=== PATIENT | male | born 1945 ===

== ENCOUNTER 2021-10-19 21:42 | Inpatient (IN) | payer SELFPAY ==
--- NOTE | 2021-10-19 22:25 | Cat Scan Report ---
CT HEAD WITHOUT CONTRAST INDICATION / CLINICAL INFORMATION: FALL, HEAD INJURY. TECHNIQUE: All CT scans at this location are performed using CT dose reduction for ALARA by means of automated e xposure control. COMPARISON: None available. FINDINGS: HEMORRHAGE: No evidence of intracranial hemorrhage or extra-axial fluid collection. EXTRA-AXIAL SPACES: Cortical sulci, sylvian fissures and basilar cisterns have an unremarkable appear ance. And enlargement of the subarachnoid space is observed in a bifrontal distribution. This is a ma nifestation of parenchymal volume loss. VENTRICULAR SYSTEM: The third and lateral ventricles are of normal size and configuration given the p atient's age of 76 years.. CEREBRAL PARENCHYMA: No areas of abnormal brain parenchymal attenuation are identified. There is no i ndication of recent infarction. MIDLINE SHIFT OR HERNIATION: There is no mass effect. CEREBELLUM / BRAINSTEM: Brainstem and cerebellum have an unremarkable appearance. MIDLINE STRUCTURES:No abnormalities of the pituitary gland or pineal region are identified. INTRACRANIAL VESSELS: Extensively calcified atherosclerotic plaque is present along the course the ca vernous segments of both internal carotid arteries. Similar findings are seen at the V4 segments of t he vertebral arteries. ORBITS: visualized portions of the orbits have an unremarkable appearance. SOFT TISSUES of HEAD: A scalp hematoma is present in the posterior parietal region near the midline. CALVARIUM: Evaluation of bone windows reveals no abnormalities. PARANASAL SINUSES / MASTOID AIR CELLS: Visualized portions of the paranasal sinuses are free from inf lammatory mucosal disease. Mastoid air cells are normally pneumatized. IMPRESSION: 1. Mild parenchymal volume loss in keeping with the patient's age of 76 years. 2. No acute intracranial abnormality. Signer Name: Kristofer Domingo MD Signed: 10/19/2021 10:20 PM Workstation Name: [id number]
[2021-10-20] MEDS ORDERED: SODIUM CHLORIDE 0.9% 1000 ML 1,000 ML IV ONE (02:41)
--- NOTE | 2021-10-20 02:47 | Emergency Department Report ---
ED General Adult HPI - General Chief complaint: Head Injury Stated complaint: HIT HEAD Time Seen by Provider: 10/20/21 02:41 Source: patient Mode of arrival: Wheelchair Limitations: No Limitations - History of Present Illness Initial comments: Mr Shaffer is a 76 yo Male brought in by and son with a fall and unwellness that has been going for the last 1 year but progressively getting worse. Pt just got to this country 5 days ago from [place] where he leaves. Pt is alcoholics. According to son patient had a fall shortly after having a bowel movement tonight. He struck his head on the floor. No fever or chills reported. No other modifying or associated factors reported. - Related Data Allergies Allergy/AdvReac Type Severity Reaction Status Date / Time No Known Allergies Allergy Verified 10/19/21 21:57 ED Review of Systems ROS: Stated complaint: HIT HEAD Other details as noted in HPI Comment: All other systems reviewed and negative Gastrointestinal: nausea, other (jaundice ). denies: vomiting ED Physical Exam - General Limitations: No Limitations General appearance: lethargic - Head Head exam: Present: other (occipital laceration 1 cm linear ) - Eye Eye exam: Present: other (appreciable jaundice) Pupils: Present: other (appreciable jaundice) - ENT ENT exam: Present: mucous membranes dry - Neck Neck exam: Absent: tenderness - Respiratory Respiratory exam: Present: normal lung sounds bilaterally. Absent: respiratory distress, accessory muscle use - Cardiovascular Cardiovascular Exam: Present: regular rate, normal rhythm, normal heart sounds - GI/Abdominal GI/Abdominal exam: Present: soft, normal bowel sounds. Absent: distended, tenderness - Extremities Exam Extremities exam: Absent: pedal edema - Back Exam Back exam: Absent: tenderness - Neurological Exam Neurological exam: Present: other (lethargy) - Skin Skin exam: Present: cyanosis, other (jaundice ) ED Course Vital Signs 10/19/21 21:43 Temperature 98.3 F Pulse Rate 95 H Respiratory 18 Rate Blood Pressure 89/47 [Left] O2 Sat by Pulse 98 Oximetry - Consultations Consultation #1: 10/20/21 05:33 Dr Vo consulted who wanted GI notified Consultation #2: 10/20/21 05:44 Dr Lara consulted and aware of this patient admission ED Medical Decision Making - Lab Data Result diagrams: 10/20/21 02:50 07/23/22 02:50 - Medical Decision Making here with a fall and noticed laceration to the occipital 1 cm linear -- with noted generalized jaundice--with history of alcoholism-- Noted with elevated bun/cr 61/3.0 likely as result of dehydration vs acute renal failure--will continue hydration Also noted with elevated K+ 5.3 with hyponatremia 123 with elevated AST/ALT 203/120 with alk phos 603-- with consider for alcoholic cirrhosis but will rule out biliary obstruction with CT abd/pel and abd US-- Considering all the above Dr Vo Consulted who accept pt for further evaluation and treatment-- and wanted GI consulted. Critical care attestation.: If time is entered above; I have spent that time in minutes in the direct care of this critically ill patient, excluding procedure time. ED Disposition Clinical Impression: Jaundice due to hepatitis, Acute hyponatremia, Hyperkalemia, Ascites of liver Fall Qualifiers: Encounter type: initial encounter Qualified Code(s): W19.XXXA - Unspecified fall, initial encounter Acute renal failure Qualifiers: Acute renal failure type: unspecified Qualified Code(s): N17.9 - Acute kidney failure, unspecified Disposition: 09 ADMITTED INPATIENT Is pt being admited?: Yes Does the pt Need Aspirin: No Condition: Stable Time of Disposition: 05:34
[2021-10-20 03:11] LABS: Hematocrit 33.7 % (35.5-45.6); Hemoglobin 11.2 gm/dl (11.8-15.2); Mean Corpuscular HGB Conc 33 % (32-34); Mean Corpuscular Volume 102 fl (84-94); Red Cell Distribution Width 18.6 % (13.2-15.2)
[2021-10-20 03:16] LABS: Platelet Count 82 K/mm3 (140-440)
[2021-10-20 03:31] LABS: Albumin 2.2 g/dL (3.9-5); Calcium 8.9 mg/dL (8.4-10.2)
[2021-10-20 03:37] LABS: INR 1.43 (0.87-1.13)
[2021-10-20 04:44] LABS: Basophils % (Manual) 0 % (0.0-1.8); Eosinophils % (Manual) 0 % (0.0-4.3); RBC Morphology Normal; Total Cells Counted 100
[2021-10-20] MEDS ORDERED: LORazepam 2 MG/ML VIAL IV ONE (05:09)
[2021-10-20] MEDS ORDERED: MORPHINE 2 MG/1 ML INJ IV PRN (05:39)
[2021-10-20] MEDS ORDERED: ONDANSETRON 4 MG/2 ML INJ IV PRN (05:39)
[2021-10-20] MEDS ORDERED: IBUPROFEN 600 MG TAB PO PRN (05:39)
[2021-10-20] MEDS ORDERED: MORPHINE 4 MG/1 ML INJ IV PRN (05:39)
[2021-10-20] MEDS ORDERED: MAGNESIUM HYDROXIDE (MOM) ORAL LIQD UDC PO PRN (05:39)
--- NOTE | 2021-10-20 05:42 | Cat Scan Report ---
CT ABDOMEN AND PELVIS WITHOUT CONTRAST INDICATION / CLINICAL INFORMATION: elevated LFTs. TECHNIQUE: Axial CT images were obtained through the abdomen and pelvis without IV contrast. All CT scans at this location are performed using CT dose reduction for ALARA by means of automated exposure control. COMPARISON: None available. FINDINGS: LOWER CHEST: Bilateral gynecomastia. No acute findings within the lower chest. LIVER: Liver demonstrates cirrhotic features without obvious focal mass. GALLBLADDER / BILE DUCTS: Mild gallbladder wall thickening not excluded. No stones. This is a nonspec ific finding in the setting of ascites and cirrhotic disease. Biliary ducts not well visualized. SPLEEN: No significant abnormality. PANCREAS: Lipomatous atrophy of the pancreas is present. ADRENALS: No significant abnormality. KIDNEYS/URETERS: No stones or hydronephrosis. No solid renal lesion. STOMACH / DUODENUM / SMALL BOWEL: The stomach, duodenum, and small bowel demonstrate no significant a bnormality. No specific abnormality of the mesentery demonstrated. COLON: No significant abnormality. APPENDIX: No significant abnormality. PERITONEUM: Moderate intra-abdominal ascites. Numerous varices are noted within the gastrosplenic lig ament. Perigastric varices additionally suggested. LYMPH NODES: No significant adenopathy. AORTA / ARTERIES: Moderate atherosclerotic calcification without acute abnormality. IVC / VEINS: No significant abnormality. URINARY BLADDER: No significant abnormality. REPRODUCTIVE ORGANS: No significant abnormality. SKELETAL SYSTEM: Degenerative changes of the lumbar spine. Moderate. ADDITIONAL ABDOMINAL/PELVIC FINDINGS: None. IMPRESSION: 1. Cirrhotic features of the liver suggested with additional upper abdominal varices and moderate int ra-abdominal ascites. Signer Name: Nikolas Saxena II, MD Signed: 10/20/2021 5:38 AM Workstation Name: [id number]
--- NOTE | 2021-10-20 05:50 | History and Physical Report ---
History of Present Illness Date of examination: 10/20/21 Date of admission: 10/20/2021 Chief complaint: Fall History of present illness: 76-year-old male presenting to the emergency room today accompanied by family members for evaluation after having a fall at home. Patient was said to be going to the restroom when he suddenly had a fall. According to son who was by the bedside patient has not been feeling quite well over the past few days. Patient came to the [facility] from [place] about 5 days ago. 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 He had a fall after having a bowel movement today. He was said to have hit his head but had no loss of consciousness. Most of the history was gotten from the family members as patient is not able to give any coherent history at this time. Work-up in the emergency room today, labs significant for leukocytosis of 12.5, hemoglobin 11.2 and hematocrit 33.7. Sodium of 129, potassium of 5.3, BUN of 61 and creatinine of 3.0. Total bilirubin 15.4, AST 203 and ALT 120, alkaline phos 603, ammonia levels were 184. CT of the head shows no acute abnormality however there is mild parenchymal volume loss in keeping with the patient's age of 76. Abdominal ultrasound reveals cirrhotic appearance of the liver with moderate intra-abdominal ascites. Possible filling defect within the enlarged common bile duct. Choledocholithiasis as well as soft tissue filling defect and not excluded. MRCP is recommended for further evaluation. Nonspecific enlarged appearance of the pancreas. CT of the abdomen and pelvis shows cirrhotic features of the liver suggested with additional upper abdominal varices and moderate intra-abdominal ascites. Clinic Office Assistant on-call has been consulted by the ER physician. Past History Past Medical History: other (Alcohol Abuse) Past Surgical History: Other (Paracentesis) Social history: alcohol abuse Family history: no significant family history Medications and Allergies Allergies Allergy/AdvReac Type Severity Reaction Status Date / Time No Known Allergies Allergy Verified 10/19/21 21:57 Active Meds: Active Medications Sodium Chloride (Nacl 0.9% 1000 Ml) 1,000 mls @ 75 mls/hr IV DIRECT YUKO Ceftriaxone Sodium (Rocephin/Ns 1 Gm/50 Ml) 1 gm in 50 mls @ 100 mls/hr IV Q24H YUKO; Protocol Ibuprofen (Ibuprofen 600 Mg Tab) 600 mg PO Q6H PRN PRN Reason: Pain, Mild (1-3) Magnesium Hydroxide (Magnesium Hydroxide (Mom) Oral Liqd Udc) 30 ml PO Q4H PRN PRN Reason: Constipation Morphine Sulfate (Morphine 2 Mg/1 Ml Inj) 2 mg IV Q4H PRN PRN Reason: Pain, Moderate (4-6) Morphine Sulfate (Morphine 4 Mg/1 Ml Inj) 4 mg IV Q4H PRN PRN Reason: Pain , Severe (7-10) Ondansetron HCl (Ondansetron 4 Mg/2 Ml Inj) 4 mg IV Q8H PRN PRN Reason: Nausea And Vomiting Sodium Chloride (Sodium Chloride 0.9% 10 Ml Flush Syringe) 10 ml IV BID YUKO Sodium Chloride (Sodium Chloride 0.9% 10 Ml Flush Syringe) 10 ml IV PRN PRN PRN Reason: LINE FLUSH Review of Systems ROS unobtainable: due to mental status Exam - Constitutional Vitals: Temp Pulse Resp BP Pulse Ox 98.3 F 95 H 18 89/47 98 10/19/21 21:43 10/19/21 21:43 10/19/21 21:43 10/19/21 21:43 10/19/21 21:43 General appearance: Present: no acute distress, well-nourished - EENT Eyes: Present: PERRL, EOM intact, scleral icterus ENT: hearing intact, clear oral mucosa, dentition normal - Neck Neck: Present: supple, normal ROM - Respiratory Respiratory effort: normal Respiratory: bilateral: CTA - Cardiovascular Rhythm: regular Heart Sounds: Present: S1 & S2. Absent: gallop, systolic murmur, diastolic murmur, rub, click - Extremities Extremities: no ischemia, pulses intact, pulses symmetrical, No edema, normal temperature, normal color, Full ROM Peripheral Pulses: within normal limits - Abdominal General gastrointestinal: Present: soft, non-tender, distended (Mildly distended), normal bowel sounds. Absent: mass - Integumentary Integumentary: Present: clear, warm, dry, jaundice, normal turgor. Absent: rash - Musculoskeletal Musculoskeletal: strength equal bilaterally - Psychiatric Psychiatric: cooperative - Neurologic Neurologic: CNII-XII intact, no focal deficits, moves all extremities Results - Labs CBC & Chem 7: 10/20/21 02:50 10/20/21 02:50 Labs: Abnormal lab results 10/20/21 10/20/21 10/20/21 Range/Units 02:50 02:50 02:50 WBC 12.5 H (4.5-11.0) K/mm3 RBC 3.30 L (3.65-5.03) M/mm3 Hgb 11.2 L (11.8-15.2) gm/dl Hct 33.7 L (35.5-45.6) % MCV 102 H (84-94) fl MCH 34 H (28-32) pg RDW 18.6 H (13.2-15.2) % Plt Count 82 L (140-440) K/mm3 Seg Neuts % (Manual) 81.0 H (40.0-70.0) % Lymphocytes % (Manual) 8.0 L (13.4-35.0) % Monocytes % (Manual) 11.0 H (0.0-7.3) % Seg Neutrophils # Man 10.1 H (1.8-7.7) K/mm3 Lymphocytes # (Manual) 1.0 L (1.2-5.4) K/mm3 Monocytes # (Manual) 1.4 H (0.0-0.8) K/mm3 PT 19.2 H (12.2-14.9) Sec. INR 1.43 H (0.87-1.13) APTT 43.0 H (24.2-36.6) Sec. Sodium 129 L (137-145) mmol/L Potassium 5.3 H (3.6-5.0) mmol/L Chloride 97.9 L (98-107) mmol/L Carbon Dioxide 12 L (22-30) mmol/L BUN 61 H (9-20) mg/dL Creatinine 3.0 H (0.8-1.3) mg/dL Glucose 114 H (75-100) mg/dL Total Bilirubin 15.40 H (0.1-1.2) mg/dL AST 203 H (5-40) units/L ALT 120 H (7-56) units/L Alkaline Phosphatase 603 H (35-129) units/L Albumin 2.2 L (3.9-5) g/dL Assessment and Plan Assessment: 1. Liver cirrhosis-with upper abdominal varices 2. Alcoholic hepatitis 3. Alcohol abuse 4. MÓNICA 5. Hyponatremia 6. Ascites 7. Hyperammonemia 8. Jaundice 9. Leukocytosis 10. Hyperkalemia 11. Hypoalbuminemia Plan: 1. Patient admitted and placed on telemetry. 2. We will place on gentle IV fluid- Normal Saline 3. Patient will also be commenced on empiric IV antibiotics. 4. Placed on CIWA protocol. 5. Consult placed to gastroenterology for evaluation and further re commendation. We will schedule for MRCP. 6. Patient started on lactulose. We will monitor ammonia level. Await further recommendations from gastroenterology. 7. Consult placed to nephrology for evaluation. Baseline BUN and creatinine unknown. DVT Prophylaxis: SCD Code Status: Full Code.
--- NOTE | 2021-10-20 05:58 | Ultrasound Report ---
ULTRASOUND ABDOMEN, LIMITED INDICATION / CLINICAL INFORMATION: elevated LFTs with alcoholism. COMPARISON: CT of the abdomen and pelvis same date. TECHNIQUE: Using transcutaneous protocol multiple grayscale and color Doppler images were captured an d stored of the pancreas, liver, aorta, inferior vena cava, gallbladder, common bile duct, and right kidney. FINDINGS: PANCREAS: Pancreas appears enlarged without ductal dilatation or distinct focal mass. AORTA: Longitudinal images of the aorta demonstrate no significant abnormality. IVC: Inferior vena cava not well visualized on ultrasound. LIVER: Liver demonstrates cirrhotic features with a nodular margin and heterogeneous hyperechoic appe arance. As measured, the right hepatic lobe is 12.1 cm. Normal hepatopedal blood flow in the main por nilo vein. GALLBLADDER: Gallbladder wall thickening present without cholelithiasis. Pericholecystic ascites is n oted. BILE DUCTS: Common bile duct is enlarged. Intraductal filling defect is suggested possibly reflective of stone. Common bile duct measures 5.1 mm. RIGHT KIDNEY: Not well visualized. FREE FLUID: Moderate intra-abdominal ascites. ADDITIONAL FINDINGS: None. IMPRESSION: 1. Cirrhotic appearance of the liver with moderate intra-abdominal ascites. 2. Possible filling defect within the enlarged common bile duct. Choledocholithiasis as well as soft tissue filling defect are not excluded. MRCP is recommended for further evaluation. 3. Nonspecific enlarged appearance of the pancreas. Signer Name: Nikolas Saxena II, MD Signed: 10/20/2021 5:54 AM Workstation Name: [id number]
[2021-10-20] MEDS ORDERED: LACTULOSE 20 GM/30 ML ORAL LIQD PO SCH (08:00)
[2021-10-20] MEDS ORDERED: LORazepam 2 MG/ML VIAL IV PRN ×3 (08:00)
--- NOTE | 2021-10-20 12:20 | Progress Note ---
Assessment and Plan - Patient Problems (1) Acute hyponatremia Current Visit: No Status: Acute Plan to address problem: IV normal saline for now (2) MÓNICA (acute kidney injury) Current Visit: Yes Status: Acute Plan to address problem: MÓNICA superimposed on CKD Defer to nephrology (3) Fall Current Visit: No Status: Acute Qualifiers: Encounter type: initial encounter Qualified Code(s): W19.XXXA - Unspecified fall, initial encounter Plan to address problem: Secondary to debility and electrolyte imbalance and hepatic failure (4) Hyperkalemia Current Visit: No Status: Acute Plan to address problem: IV calcium gluconate (5) Hepatic failure Current Visit: Yes Status: Chronic Qualifiers: Liver failure chronicity: subacute Hepatic coma status: without hepatic coma Qualified Code(s): K72.00 - Acute and subacute hepatic failure without coma Plan to address problem: Lactulose 20 mg po bid Hepatitis profile (6) Hepatic encephalopathy Current Visit: Yes Status: Acute (7) DVT prophylaxis Current Visit: Yes Status: Acute Plan to address problem: Heparin and GI prophylaxis (8) Advance care planning Current Visit: Yes Status: Acute Plan to address problem: Disease education conducted, care plan discussed, all diagnosis discussed prognosis discussed and patient acknowledged understanding with care plan family at bedside +30 minutes Subjective Date of service: 10/20/21 Principal diagnosis: MÓNICA, Hyponatremia, Interval history: 76-year-old male presenting to the emergency room today accompanied by family members for evaluation after having a fall at home. Patient was said to be going to the restroom when he suddenly had a fall. According to son who was by the bedside patient has not been feeling quite well over the past few days. Patient came to the [facility] from [place] about 5 days ago. 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 He had a fall after having a bowel movement today. He was said to have hit his head but had no loss of consciousness. Most of the history was gotten from the family members as patient is not able to give any coherent history at this time. Work-up in the emergency room today, labs significant for leukocytosis of 12.5, hemoglobin 11.2 and hematocrit 33.7. Sodium of 129, potassium of 5.3, BUN of 61 and creatinine of 3.0. Total bilirubin 15.4, AST 203 and ALT 120, alkaline phos 603, ammonia levels were 184. CT of the head shows no acute abnormality however there is mild parenchymal volume loss in keeping with the patient's age of 76. Abdominal ultrasound reveals cirrhotic appearance of the liver with moderate intra-abdominal ascites. Possible filling defect within the enlarged common bile duct. Choledocholithiasis as well as soft tissue filling defect and not excluded. MRCP is recommended for further evaluation. Nonspecific enlarged appearance of the pancreas. CT of the abdomen and pelvis shows cirrhotic features of the liver suggested with additional upper abdominal varices and moderate intra-abdominal ascites. [employer] [employer] on-call has been consulted by the ER physician. 10/20/21 Patient admitted for hepatic encephalopathy, fall, hyponatremia, hypokalemia, MÓNICA, hepatic failure and transaminitis IV fluids and IV calcium gluconate Nephrology consult appreciated Objective - Constitutional Vitals: Vital Signs - 12hr 10/20/21 06:35 Respiratory 16 Rate O2 Sat by Pulse 96 Oximetry General appearance: Present: no acute distress, well-nourished - EENT Eyes: PERRL, EOM intact ENT: hearing intact, clear oral mucosa Ears: bilateral: normal - Neck Neck: supple, normal ROM - Respiratory Respiratory effort: normal Respiratory: bilateral: CTA - Breasts Breasts: normal - Cardiovascular Heart rate: 78 Rhythm: regular Heart Sounds: Present: S1 & S2. Absent: gallop, rub Extremities: pulses intact, No edema, normal color, Full ROM - Gastrointestinal General gastrointestinal: Present: soft, non-tender, non-distended, normal bowel sounds - Genitourinary Male genitourinary: normal - Integumentary Integumentary: clear, warm, dry - Musculoskeletal Musculoskeletal: 1, strength equal bilaterally - Neurologic Neurologic: moves all extremities - Psychiatric Psychiatric: memory intact, appropriate mood/affect, intact judgment & insight - Labs CBC & Chem 7: 10/21/21 04:00 10/21/21 04:00 Labs: Abnormal lab results 10/20/21 10/20/21 10/20/21 Range/Units 02:50 02:50 02:50 WBC 12.5 H (4.5-11.0) K/mm3 RBC 3.30 L (3.65-5.03) M/mm3 Hgb 11.2 L (11.8-15.2) gm/dl Hct 33.7 L (35.5-45.6) % MCV 102 H (84-94) fl MCH 34 H (28-32) pg RDW 18.6 H (13.2-15.2) % Plt Count 82 L (140-440) K/mm3 Seg Neuts % (Manual) 81.0 H (40.0-70.0) % Lymphocytes % (Manual) 8.0 L (13.4-35.0) % Monocytes % (Manual) 11.0 H (0.0-7.3) % Seg Neutrophils # Man 10.1 H (1.8-7.7) K/mm3 Lymphocytes # (Manual) 1.0 L (1.2-5.4) K/mm3 Monocytes # (Manual) 1.4 H (0.0-0.8) K/mm3 PT 19.2 H (12.2-14.9) Sec. INR 1.43 H (0.87-1.13) APTT 43.0 H (24.2-36.6) Sec. Sodium 129 L (137-145) mmol/L Potassium 5.3 H (3.6-5.0) mmol/L Chloride 97.9 L (98-107) mmol/L Carbon Dioxide 12 L (22-30) mmol/L BUN 61 H (9-20) mg/dL Creatinine 3.0 H (0.8-1.3) mg/dL Glucose 114 H (75-100) mg/dL Total Bilirubin 15.40 H (0.1-1.2) mg/dL AST 203 H (5-40) units/L ALT 120 H (7-56) units/L Alkaline Phosphatase 603 H (35-129) units/L Ammonia (25-60) umol/L Albumin 2.2 L (3.9-5) g/dL // Range/Units 05:49 WBC (4.5-11.0) K/mm3 RBC (3.65-5.03) M/mm3 Hgb (11.8-15.2) gm/dl Hct (35.5-45.6) % MCV (84-94) fl MCH (28-32) pg RDW (13.2-15.2) % Plt Count (140-440) K/mm3 Seg Neuts % (Manual) (40.0-70.0) % Lymphocytes % (Manual) (13.4-35.0) % Monocytes % (Manual) (0.0-7.3) % Seg Neutrophils # Man (1.8-7.7) K/mm3 Lymphocytes # (Manual) (1.2-5.4) K/mm3 Monocytes # (Manual) (0.0-0.8) K/mm3 PT (12.2-14.9) Sec. INR (0.87-1.13) APTT (24.2-36.6) Sec. Sodium (137-145) mmol/L Potassium (3.6-5.0) mmol/L Chloride (98-107) mmol/L Carbon Dioxide (22-30) mmol/L BUN (9-20) mg/dL Creatinine (0.8-1.3) mg/dL Glucose (75-100) mg/dL Total Bilirubin (0.1-1.2) mg/dL AST (5-40) units/L ALT (7-56) units/L Alkaline Phosphatase (35-129) units/L Ammonia 184.0 H (25-60) umol/L Albumin (3.9-5) g/dL
[2021-10-20] MEDS: SODIUM CHLORIDE 0.9% 1000 ML 1,000 ML IV SCH ×2 (14:00→23:00)
[2021-10-20] MEDS ORDERED: CALC GLUCONATE 1GM/NS 100 ML 2 GM/200 ML BAG IV ONE (14:00)
[2021-10-20] MEDS: cefTRIAXone/NS 1 GM/50 ML 1 GM/50 ML BAG IV SCH (14:00)
--- NOTE | 2021-10-20 16:10 | Gastroenterology Consultation ---
History of Present Illness - Reason for Consult Consult date: 10/20/21 jaundice, abnormal liver enzymes Requesting physician: EMELY LUCIO - History of Present Illness The patient is a 76 yo male who presented after a fall at home, found to be jaundiced with elevated liver enzymes on admission. patient asleep at the time of exam, difficult to arouse, family members (son and grandson) are at bedside who provides history for pt. He recently came here to visit from [place] 1 week ago. He was supposed to be on medications "for his liver" in [place] but he did not take meds. Family unable to provide further details regarding this. H/o alcohol abuse but apparently quit 2 years ago. No noticeable mental status changes per family. found to have bilirubin of 15, alk phos 600s and ast/alt ~3 x uln. ? dilated cbd on US but CT without dilated biliary ducts or stones seen. Past History Past Medical History: other (Alcohol Abuse, otherwise unable to obtain) Past Surgical History: Other (Paracentesis) Social history: alcohol abuse Family history: no significant family history Medications and Allergies Allergies Allergy/AdvReac Type Severity Reaction Status Date / Time No Known Allergies Allergy Verified 10/19/21 21:57 Home Medications Medication Instructions Recorded Confirmed Last Taken Type No Known Home Medications [No 10/20/21 10/20/21 Unknown History Reported Home Medications] Active Meds: Active Medications Sodium Chloride (Nacl 0.9% 1000 Ml) 1,000 mls @ 75 mls/hr IV DIRECT YUKO Last Admin: 10/20/21 14:00 Dose: 75 mls/hr Ceftriaxone Sodium (Rocephin/Ns 1 Gm/50 Ml) 1 gm in 50 mls @ 100 mls/hr IV Q24H YUKO; Protocol Last Admin: 10/20/21 14:00 Dose: 100 mls/hr Lorazepam (Lorazepam 2 Mg/Ml Vial) 2 mg IV Q1H PRN PRN Reason: CIWA-Ar 8-15 Lorazepam (Lorazepam 2 Mg/Ml Vial) 4 mg IV Q1H PRN PRN Reason: CIWA-Ar 16-25 Lorazepam (Lorazepam 2 Mg/Ml Vial) 4 mg IV Q15MIN PRN PRN Reason: CIWA-Ar >25 Magnesium Hydroxide (Magnesium Hydroxide (Mom) Oral Liqd Udc) 30 ml PO Q4H PRN PRN Reason: Constipation Morphine Sulfate (Morphine 2 Mg/1 Ml Inj) 2 mg IV Q4H PRN PRN Reason: Pain, Moderate (4-6) Morphine Sulfate (Morphine 4 Mg/1 Ml Inj) 4 mg IV Q4H PRN PRN Reason: Pain , Severe (7-10) Ondansetron HCl (Ondansetron 4 Mg/2 Ml Inj) 4 mg IV Q8H PRN PRN Reason: Nausea And Vomiting Sodium Chloride (Sodium Chloride 0.9% 10 Ml Flush Syringe) 10 ml IV BID YUKO Last Admin: 10/20/21 14:01 Dose: 10 ml Sodium Chloride (Sodium Chloride 0.9% 10 Ml Flush Syringe) 10 ml IV PRN PRN PRN Reason: LINE FLUSH Reviewed/updated patient's home and current medications. Review of Systems - Review of Systems ROS unobtainable: due to mental status Exam - Constitutional Vital Signs: Temp Pulse Resp BP Pulse Ox 98.3 F 95 H 16 89/47 96 10/19/21 21:43 10/19/21 21:43 10/20/21 06:35 10/19/21 21:43 10/20/21 06:35 General appearance: no acute distress, other (sleeping, jaundiced) - EENT Eyes: scleral icterus - Respiratory Respiratory effort: normal Respiratory: bilateral: CTA - Cardiovascular Rhythm: regular - Gastrointestinal General gastrointestinal: Present: soft, distended (+ ascited), normal bowel sounds - Integumentary Integumentary: Present: clear - Labs CBC & Chem 7: 10/20/21 02:50 10/20/21 02:50 Lab Results: Laboratory Results - last 24 hr 10/20/21 10/20/21 10/20/21 02:50 02:50 02:50 WBC 12.5 H RBC 3.30 L Hgb 11.2 L Hct 33.7 L MCV 102 H MCH 34 H MCHC 33 RDW 18.6 H Plt Count 82 L Add Manual Diff Complete Total Counted 100 Seg Neuts % (Manual) 81.0 H Band Neutrophils % 0 Lymphocytes % (Manual) 8.0 L Reactive Lymphs % (Man) 0 Monocytes % (Manual) 11.0 H Eosinophils % (Manual) 0 Basophils % (Manual) 0 Metamyelocytes % 0 Myelocytes % 0 Promyelocytes % 0 Blast Cells % 0 Nucleated RBC % Not Reportable Seg Neutrophils # Man 10.1 H Band Neutrophils # 0.0 Lymphocytes # (Manual) 1.0 L Abs React Lymphs (Man) 0.0 Monocytes # (Manual) 1.4 H Eosinophils # (Manual) 0.0 Basophils # (Manual) 0.0 Metamyelocytes # 0.0 Myelocytes # 0.0 Promyelocytes # 0.0 Blast Cells # 0.0 WBC Morphology Not Reportable Hypersegmented Neuts Not Reportable Hyposegmented Neuts Not Reportable Hypogranular Neuts Not Reportable Smudge Cells Not Reportable Toxic Granulation Not Reportable Toxic Vacuolation Not Reportable Dohle Bodies Not Reportable Pelger-Huet Anomaly Not Reportable Sujata Rods Not Reportable Platelet Estimate Not Reportable Clumped Platelets Not Reportable Plt Clumps, EDTA Not Reportable Large Platelets Not Reportable Giant Platelets Not Reportable Platelet Satelliting Not Reportable Plt Morphology Comment Not Reportable RBC Morphology Normal Dimorphic RBCs Not Reportable Polychromasia Not Reportable Hypochromasia Not Reportable Poikilocytosis Not Reportable Anisocytosis Not Reportable Microcytosis Not Reportable Macrocytosis Not Reportable Spherocytes Not Reportable Pappenheimer Bodies Not Reportable Sickle Cells Not Reportable Target Cells Not Reportable Tear Drop Cells Not Reportable Ovalocytes Not Reportable Helmet Cells Not Reportable Hanna-[place] Bodies Not Reportable [place] Rings Not Reportable [place] Cells Not Reportable Bite Cells Not Reportable Crenated Cell Not Reportable Elliptocytes Not Reportable Acanthocytes (Spur) Not Reportable Rouleaux Not Reportable Hemoglobin C Crystals Not Reportable Schistocytes Not Reportable Malaria parasites Not Reportable Grzegorz Bodies Not Reportable Hem Pathologist Commnt No PT 19.2 H INR 1.43 H APTT 43.0 H Sodium Potassium Chloride Carbon Dioxide Anion Gap BUN Creatinine Estimated GFR BUN/Creatinine Ratio Glucose Calcium Total Bilirubin AST ALT Alkaline Phosphatase Ammonia Total Protein Albumin Albumin/Globulin Ratio Plasma/Serum Alcohol < 0.01 10/20/21 10/20/21 02:50 05:49 WBC RBC Hgb Hct MCV MCH MCHC RDW Plt Count Add Manual Diff Total Counted Seg Neuts % (Manual) Band Neutrophils % Lymphocytes % (Manual) Reactive Lymphs % (Man) Monocytes % (Manual) Eosinophils % (Manual) Basophils % (Manual) Metamyelocytes % Myelocytes % Promyelocytes % Blast Cells % Nucleated RBC % Seg Neutrophils # Man Band Neutrophils # Lymphocytes # (Manual) Abs React Lymphs (Man) Monocytes # (Manual) Eosinophils # (Manual) Basophils # (Manual) Metamyelocytes # Myelocytes # Promyelocytes # Blast Cells # WBC Morphology Hypersegmented Neuts Hyposegmented Neuts Hypogranular Neuts Smudge Cells Toxic Granulation Toxic Vacuolation Dohle Bodies Pelger-Huet Anomaly Sujata Rods Platelet Estimate Clumped Platelets Plt Clumps, EDTA Large Platelets Giant Platelets Platelet Satelliting Plt Morphology Comment RBC Morphology Dimorphic RBCs Polychromasia Hypochromasia Poikilocytosis Anisocytosis Microcytosis Macrocytosis Spherocytes Pappenheimer Bodies Sickle Cells Target Cells Tear Drop Cells Ovalocytes Helmet Cells Hanna-[place] Bodies [place] Rings [place] Cells Bite Cells Crenated Cell Elliptocytes Acanthocytes (Spur) Rouleaux Hemoglobin C Crystals Schistocytes Malaria parasites Grzegorz Bodies Hem Pathologist Commnt PT INR APTT Sodium 129 L Potassium 5.3 H Chloride 97.9 L Carbon Dioxide 12 L Anion Gap 24 BUN 61 H Creatinine 3.0 H Estimated GFR 20 BUN/Creatinine Ratio 20 Glucose 114 H Calcium 8.9 Total Bilirubin 15.40 H AST 203 H ALT 120 H Alkaline Phosphatase 603 H Ammonia 184.0 H Total Protein 6.4 Albumin 2.2 L Albumin/Globulin Ratio 0.5 Plasma/Serum Alcohol - Imaging CT Scan: report reviewed Ultrasound: report reviewed Assessment and Plan 1. Abnormal liver enzymes/jaundice - patient with signs of cirrhosis on imaging and labs consistent with this (low platelets, elevated INR). ? biliary dilatation on US, however not seen on ct scan. h/o alcohol abuse (could be etiology of cirrhosis) but no intake within last 2 years per family at bedside although unable to confirm with pt and he just came here from [place] 1 week ago to visit. will check viral hep serologies, monitor liver enzymes, and f/u MRCP. recommend lactulose TID, and diagnostic paracentesis.
--- NOTE | 2021-10-20 16:49 | Consultation ---
History of Present Illness - Reason for Consult Consult date: 10/20/21 acute renal failure - History of Present Illness 76-year-old Malaysian speaking male presents to the emergency room after having a fall at home. Patient was said to be going to the restroom when he suddenly had a fall. Not clear what happened. Family provides history as patient unable, son provides translation. Patient has not been feeling quite well over the past few days. Patient came to the [facility] from [place] about 5 days ago. 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 No known history of kidney disease In Ed, noted to have leukocytosis of 12.5, hemoglobin 11.2 and hematocrit 33.7. Sodium of 129, potassium of 5.3, BUN of 61 and creatinine of 3.0. Total bilirubin 15.4, AST 203 and ALT 120, alkaline phos 603, ammonia levels were 184. Past History Past Medical History: other (Alcohol Abuse, otherwise unable to obtain) Past Surgical History: Other (Paracentesis) Social history: alcohol abuse Family history: no significant family history Medications and Allergies Allergies Allergy/AdvReac Type Severity Reaction Status Date / Time No Known Allergies Allergy Verified 10/19/21 21:57 Home Medications Medication Instructions Recorded Confirmed Last Taken Type No Known Home Medications [No 10/20/21 10/20/21 Unknown History Reported Home Medications] Active Meds: Active Medications Sodium Chloride (Nacl 0.9% 1000 Ml) 1,000 mls @ 75 mls/hr IV DIRECT YUKO Last Admin: 10/20/21 14:00 Dose: 75 mls/hr Ceftriaxone Sodium (Rocephin/Ns 1 Gm/50 Ml) 1 gm in 50 mls @ 100 mls/hr IV Q24H YUKO; Protocol Last Admin: 10/20/21 14:00 Dose: 100 mls/hr Lactulose (Lactulose 20 Gm/30 Ml Oral Liqd) 20 gm PO Q6HR YUKO Lorazepam (Lorazepam 2 Mg/Ml Vial) 2 mg IV Q1H PRN PRN Reason: CIWA-Ar 8-15 Lorazepam (Lorazepam 2 Mg/Ml Vial) 4 mg IV Q1H PRN PRN Reason: CIWA-Ar 16-25 Lorazepam (Lorazepam 2 Mg/Ml Vial) 4 mg IV Q15MIN PRN PRN Reason: CIWA-Ar >25 Magnesium Hydroxide (Magnesium Hydroxide (Mom) Oral Liqd Udc) 30 ml PO Q4H PRN PRN Reason: Constipation Morphine Sulfate (Morphine 2 Mg/1 Ml Inj) 2 mg IV Q4H PRN PRN Reason: Pain, Moderate (4-6) Morphine Sulfate (Morphine 4 Mg/1 Ml Inj) 4 mg IV Q4H PRN PRN Reason: Pain , Severe (7-10) Ondansetron HCl (Ondansetron 4 Mg/2 Ml Inj) 4 mg IV Q8H PRN PRN Reason: Nausea And Vomiting Sodium Chloride (Sodium Chloride 0.9% 10 Ml Flush Syringe) 10 ml IV BID YUKO Last Admin: 10/20/21 14:01 Dose: 10 ml Sodium Chloride (Sodium Chloride 0.9% 10 Ml Flush Syringe) 10 ml IV PRN PRN PRN Reason: LINE FLUSH Review of Systems ROS unobtainable: due to mental status Exam - Vital Signs Vital signs: Vital Signs Temp Pulse Resp BP Pulse Ox 98.3 F 95 H 18 89/47 98 10/19/21 21:43 10/19/21 21:43 10/19/21 21:43 10/19/21 21:43 10/19/21 21:43 - General Appearance General appearance: obese, other (no acute distress, jaundiced) EENT: ATNC Respiratory: Clear to Ascultation Heart: regular, S1S2 Gastrointestinal: Present: distended Integumentary: no rash Neurologic: confused, obtunded Results - Lab Results 10/20/21 02:50 10/20/21 02:50 Most recent lab results Calcium 8.9 mg/dL (8.4-10.2) 10/20/21 02:50 Assessment and Plan # MÓNICA: unknown baseline, consider pre-renal vs HRS picture. Agree with fluid challenge. No acute obstruction noted. - check serologies, urine studies - check PTH, phos - continue IVF as tolerated - if not responding with high clinical concern for HRS, start treatment with midodrine, octreotide, albumin - avoid nephrotoxins - renally dose medications - consider biopsy pending serologies - no immediate need for renal replacement therapy # Hyponatremia: IVF # Liver Cirrhosis, Alcoholic Hepatitis, Ascites, Thrombocytopenia, Hypoalbuminemia: GI following, note plan for paracentesis # Lekuocytosis # Metabolic Acidosis: will start po repletion if able, otherwise start gtt if not improving with IVF # BP/Volume: BP soft but stable, ascites noted
[2021-10-20 17:17] LABS: Hepatitis B Surface Antigen Non-Reactive (Negative); Hepatitis C Virus Antibody Non-Reactive (NonReactive)
[2021-10-20] MEDS: LACTULOSE 20 GM/30 ML ORAL LIQD PO SCH (17:38)
[2021-10-21] MEDS: LACTULOSE 20 GM/30 ML ORAL LIQD PO SCH ×4 (00:15→18:24)
[2021-10-21 05:16] LABS: Hematocrit 29.8 % (35.5-45.6); Mean Corpuscular HGB Conc 33 % (32-34); Mean Corpuscular Volume 101 fl (84-94); Platelet Count 107 K/mm3 (140-440); Red Blood Count 2.94 M/mm3 (3.65-5.03); Red Cell Distribution Width 18.1 % (13.2-15.2)
[2021-10-21 05:42] LABS: Albumin 1.9 g/dL (3.9-5); Calcium 9.1 mg/dL (8.4-10.2)
[2021-10-21] MEDS: cefTRIAXone/NS 1 GM/50 ML 1 GM/50 ML BAG IV SCH (06:05)
[2021-10-21 06:31] LABS: Anisocytosis 1+; Basophils % (Manual) 0 % (0.0-1.8); Platelet Estimate Consistent w Auto; Total Cells Counted 100
[2021-10-21] MEDS: SODIUM CHLORIDE 0.9% 1000 ML 1,000 ML IV SCH (11:24)
[2021-10-21] MEDS: SODIUM BICARBONATE 650 MG TAB PO SCH ×2 (15:32→20:00)
--- NOTE | 2021-10-21 16:18 | Gastroenterology Progress Note ---
Assessment and Plan 1. Decompensated cirrhosis 2. Abnormal liver enzymes/jaundice -suspected alcohol related liver disease (cirrhosis); last alcohol intake over 1 year ago per fam. MRCP pending to r/o biliary obstruction. viral hep serologies negative. recommend diagnostic paracentesis, renal following for MÓNICA, monitor liver enzymes. cont lactulose Subjective Date of service: 10/21/21 Principal diagnosis: cirrhosis, jaundice Interval history: no events overnight, awake/provides minimal history. son and at bedside. Objective - Constitutional Vitals: Temp Pulse Resp BP Pulse Ox 97.3 F L 72 18 109/45 100 10/21/21 07:55 10/21/21 14:00 10/21/21 07:55 10/21/21 07:55 10/21/21 04:20 General appearance: no acute distress - EENT Eyes: scleral icterus - Respiratory Respiratory effort: normal Respiratory: bilateral: CTA - Cardiovascular Rhythm: regular - Gastrointestinal General gastrointestinal: Present: soft, distended (mild distention) - Neurologic Neurological: disoriented - Labs CBC & Chem 7: 10/21/21 04:00 10/21/21 04:00 Labs: Laboratory Results - last 24 hr 10/20/21 10/21/21 10/21/21 Unknown 04:00 04:00 WBC 11.8 H RBC 2.94 L Hgb 10.0 L Hct 29.8 L MCV 101 H MCH 34 H MCHC 33 RDW 18.1 H Plt Count 107 L Add Manual Diff Complete Total Counted 100 Seg Neuts % (Manual) 87.0 H Band Neutrophils % 0 Lymphocytes % (Manual) 5.0 L Reactive Lymphs % (Man) 0 Monocytes % (Manual) 7.0 Eosinophils % (Manual) 1.0 Basophils % (Manual) 0 Metamyelocytes % 0 Myelocytes % 0 Promyelocytes % 0 Blast Cells % 0 Nucleated RBC % Not Reportable Seg Neutrophils # Man 10.3 H Band Neutrophils # 0.0 Lymphocytes # (Manual) 0.6 L Abs React Lymphs (Man) 0.0 Monocytes # (Manual) 0.8 Eosinophils # (Manual) 0.1 Basophils # (Manual) 0.0 Metamyelocytes # 0.0 Myelocytes # 0.0 Promyelocytes # 0.0 Blast Cells # 0.0 WBC Morphology Not Reportable Hypersegmented Neuts Not Reportable Hyposegmented Neuts Not Reportable Hypogranular Neuts Not Reportable Smudge Cells Not Reportable Toxic Granulation Not Reportable Toxic Vacuolation Not Reportable Dohle Bodies Not Reportable Pelger-Huet Anomaly Not Reportable Sujata Rods Not Reportable Platelet Estimate Consistent w auto Clumped Platelets Not Reportable Plt Clumps, EDTA Not Reportable Large Platelets Not Reportable Giant Platelets Not Reportable Platelet Satelliting Not Reportable Plt Morphology Comment Not Reportable RBC Morphology Not Reportable Dimorphic RBCs Not Reportable Polychromasia Not Reportable Hypochromasia Not Reportable Poikilocytosis Not Reportable Anisocytosis 1+ Microcytosis Not Reportable Macrocytosis Not Reportable Spherocytes Not Reportable Pappenheimer Bodies Not Reportable Sickle Cells Not Reportable Target Cells Not Reportable Tear Drop Cells Not Reportable Ovalocytes Not Reportable Helmet Cells Not Reportable [place] Bodies Not Reportable [place] Rings Not Reportable [place] Cells Not Reportable Bite Cells Not Reportable Crenated Cell Not Reportable Elliptocytes Not Reportable Acanthocytes (Spur) Not Reportable Rouleaux Not Reportable Hemoglobin C Crystals Not Reportable Schistocytes Not Reportable Malaria parasites Not Reportable Grzegorz Bodies Not Reportable Hem Pathologist Commnt No Sodium 131 L Potassium 4.9 Chloride 105.5 Carbon Dioxide 14 L Anion Gap 16 BUN 63 H Creatinine 2.7 H Estimated GFR 23 BUN/Creatinine Ratio 23 Glucose 65 L Calcium 9.1 Magnesium 2.60 H Total Bilirubin 14.30 H AST 223 H ALT 122 H Alkaline Phosphatase 591 H Ammonia Total Protein 5.9 L Albumin 1.9 L Albumin/Globulin Ratio 0.5 Amylase 41 PTH Intact Hepatitis A IgM Ab Non-reactive Hep Bs Antigen Non-reactive Hep B Core IgM Ab Non-reactive Hepatitis C Antibody Non-reactive 10/21/21 10/21/21 Unknown Unknown WBC RBC Hgb Hct MCV MCH MCHC RDW Plt Count Add Manual Diff Total Counted Seg Neuts % (Manual) Band Neutrophils % Lymphocytes % (Manual) Reactive Lymphs % (Man) Monocytes % (Manual) Eosinophils % (Manual) Basophils % (Manual) Metamyelocytes % Myelocytes % Promyelocytes % Blast Cells % Nucleated RBC % Seg Neutrophils # Man Band Neutrophils # Lymphocytes # (Manual) Abs React Lymphs (Man) Monocytes # (Manual) Eosinophils # (Manual) Basophils # (Manual) Metamyelocytes # Myelocytes # Promyelocytes # Blast Cells # WBC Morphology Hypersegmented Neuts Hyposegmented Neuts Hypogranular Neuts Smudge Cells Toxic Granulation Toxic Vacuolation Dohle Bodies Pelger-Huet Anomaly Sujata Rods Platelet Estimate Clumped Platelets Plt Clumps, EDTA Large Platelets Giant Platelets Platelet Satelliting Plt Morphology Comment RBC Morphology Dimorphic RBCs Polychromasia Hypochromasia Poikilocytosis Anisocytosis Microcytosis Macrocytosis Spherocytes Pappenheimer Bodies Sickle Cells Target Cells Tear Drop Cells Ovalocytes Helmet Cells [place] Bodies [place] Rings [place] Cells Bite Cells Crenated Cell Elliptocytes Acanthocytes (Spur) Rouleaux Hemoglobin C Crystals Schistocytes Malaria parasites Grzegorz Bodies Hem Pathologist Commnt Sodium Potassium Chloride Carbon Dioxide Anion Gap BUN Creatinine Estimated GFR BUN/Creatinine Ratio Glucose Calcium Magnesium Total Bilirubin AST ALT Alkaline Phosphatase Ammonia 68.0 H Total Protein Albumin Albumin/Globulin Ratio Amylase PTH Intact 13.19 L Hepatitis A IgM Ab Hep Bs Antigen Hep B Core IgM Ab Hepatitis C Antibody
--- NOTE | 2021-10-21 18:52 | Progress Note ---
Assessment and Plan # MÓNICA: unknown baseline, consider pre-renal vs HRS picture. Agree with ongoing fluid challenge. No acute obstruction noted. - creatinine improving 3.0->2.7 - check serologies, urine studies - note PTH very low, nutritional? - continue IVF as tolerated - if not responding with high clinical concern for HRS, consider treatment with midodrine, octreotide, albumin - avoid nephrotoxins - renally dose medications - consider biopsy pending serologies - no immediate need for renal replacement therapy # Hyponatremia: IVF, improving # Liver Cirrhosis, Alcoholic Hepatitis, Ascites, Thrombocytopenia, Hypoalbuminemia: GI following, note plan for MRCP # Lekuocytosis # Metabolic Acidosis: will continue po repletion if able, otherwise start gtt if unable to take pills # BP/Volume: BP soft but stable, ascites noted Subjective Date of service: 10/21/21 Principal diagnosis: cirrhosis, jaundice Interval history: Remains lethargic, drowsy. Family at bedside. Objective - Exam Narrative Exam: General appearance: obese, other (no acute distress, jaundiced) EENT: ATNC Respiratory: Clear to Ascultation Heart: regular, S1S2 Gastrointestinal: Present: distended Integumentary: no rash Neurologic: confused, obtunded - Vital Signs Vital signs: Vital Signs - 12hr 10/21/21 10/21/21 10/21/21 07:55 14:00 18:00 Temperature 97.3 F L Pulse Rate 72 Pulse Rate [ 70 From Monitor] Respiratory 18 16 Rate Blood Pressure 109/45 O2 Sat by Pulse 100 Oximetry - Lab 10/21/21 04:00 10/21/21 04:00 Most recent lab results Calcium 9.1 mg/dL (8.4-10.2) 10/21/21 04:00 Magnesium 2.60 mg/dL (1.7-2.3) H 10/21/21 04:00 Medications & Allergies - Medications Allergies/Adverse Reactions: Allergies No Known Allergies Allergy (Verified 10/19/21 21:57) Home Medications: Home Medications Medication Instructions Recorded Confirmed Last Taken Type No Known Home Medications [No 10/20/21 10/20/21 Unknown History Reported Home Medications] Active Medications: Generic Name Dose Route Start Last Admin Trade Name Freq PRN Reason Stop Dose Admin Sodium Chloride 1,000 mls @ 75 mls/hr 10/20/21 05:45 10/21/21 11:24 Nacl 0.9% 1000 Ml IV 75 mls/hr DIRECT YUKO Administration Ceftriaxone Sodium 1 gm in 50 mls @ 100 mls/hr 10/20/21 06:00 10/21/21 06:05 Rocephin/Ns 1 Gm/50 Ml IV 100 mls/hr Q24H YUKO Administration Protocol Lactulose 20 gm 10/20/21 18:00 10/21/21 18:24 Lactulose 20 Gm/30 Ml Oral Liqd PO Not Given Q6HR YUKO Lorazepam 2 mg 10/20/21 08:00 Lorazepam 2 Mg/Ml Vial IV Q1H PRN CIWA-Ar 8-15 Lorazepam 4 mg 10/20/21 08:00 Lorazepam 2 Mg/Ml Vial IV Q1H PRN CIWA-Ar 16-25 Lorazepam 4 mg 10/20/21 08:00 Lorazepam 2 Mg/Ml Vial IV Q15MIN PRN CIWA-Ar >25 Magnesium Hydroxide 30 ml 10/20/21 05:39 Magnesium Hydroxide (Mom) Oral Liqd Udc PO Q4H PRN Constipation Morphine Sulfate 2 mg 10/20/21 05:39 Morphine 2 Mg/1 Ml Inj IV Q4H PRN Pain, Moderate (4-6) Morphine Sulfate 4 mg 10/20/21 05:39 Morphine 4 Mg/1 Ml Inj IV Q4H PRN Pain , Severe (7-10) Ondansetron HCl 4 mg 10/20/21 05:39 Ondansetron 4 Mg/2 Ml Inj IV Q8H PRN Nausea And Vomiting Sodium Bicarbonate 650 mg 10/21/21 08:00 10/21/21 15:32 Sodium Bicarbonate 650 Mg Tab PO Not Given TID YUKO Sodium Chloride 10 ml 10/20/21 10:00 10/21/21 11:25 Sodium Chloride 0.9% 10 Ml Flush Syringe IV 10 ml BID YUKO Administration Sodium Chloride 10 ml 10/20/21 05:39 Sodium Chloride 0.9% 10 Ml Flush Syringe IV PRN PRN LINE FLUSH
[2021-10-22] MEDS: SODIUM CHLORIDE 0.9% 1000 ML 1,000 ML IV SCH (00:19)
--- NOTE | 2021-10-22 00:55 | Progress Note ---
Assessment and Plan - Patient Problems (1) Acute hyponatremia Current Visit: No Status: Acute Plan to address problem: IV normal saline for now Improved (2) MÓNICA (acute kidney injury) Current Visit: Yes Status: Acute Plan to address problem: MÓNICA superimposed on CKD Defer to nephrology (3) Fall Current Visit: No Status: Acute Qualifiers: Encounter type: initial encounter Qualified Code(s): W19.XXXA - Unspecified fall, initial encounter Plan to address problem: Secondary to debility and electrolyte imbalance and hepatic failure (4) Hyperkalemia Current Visit: No Status: Acute Plan to address problem: IV calcium gluconate Resolved (5) Hepatic failure Current Visit: Yes Status: Chronic Qualifiers: Liver failure chronicity: subacute Hepatic coma status: without hepatic c ant Qualified Code(s): K72.00 - Acute and subacute hepatic failure without coma Plan to address problem: Lactulose 20 mg po bid Hepatitis profile (6) Hepatic encephalopathy Current Visit: Yes Status: Acute Plan to address problem: Lactulose as ordered (7) DVT prophylaxis Current Visit: Yes Status: Acute Plan to address problem: Heparin and GI prophylaxis (8) Advance care planning Current Visit: Yes Status: Acute Plan to address problem: Disease education conducted, care plan discussed, all diagnosis discussed prognosis discussed and patient acknowledged understanding with care plan family at bedside +30 minutes Subjective Date of service: 10/21/21 Principal diagnosis: MÓNICA, Hyponatremia, Interval history: 76-year-old male presenting to the emergency room today accompanied by family members for evaluation after having a fall at home. Patient was said to be going to the restroom when he suddenly had a fall. According to son who was by the bedside patient has not been feeling quite well over the past few days. Patient came to the [facility] from [place] about 5 days ago. 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 He had a fall after having a bowel movement today. He was said to have hit his head but had no loss of consciousness. Most of the history was gotten from the family members as patient is not able to give any coherent history at this time. Work-up in the emergency room today, labs significant for leukocytosis of 12.5, hemoglobin 11.2 and hematocrit 33.7. Sodium of 129, potassium of 5.3, BUN of 61 and creatinine of 3.0. Total bilirubin 15.4, AST 203 and ALT 120, alkaline phos 603, ammonia levels were 184. CT of the head shows no acute abnormality however there is mild parenchymal volume loss in keeping with the patient's age of 76. Abdominal ultrasound reveals cirrhotic appearance of the liver with moderate intra-abdominal ascites. Possible filling defect within the enlarged common bile duct. Choledocholithiasis as well as soft tissue filling defect and not excluded. MRCP is recommended for further evaluation. Nonspecific enlarged appearance of the pancreas. CT of the abdomen and pelvis shows cirrhotic features of the liver suggested with additional upper abdominal varices and moderate intra-abdominal ascites. Sofa Inspector on-call has been consulted by the ER physician. 10/20/21 Patient admitted for hepatic encephalopathy, fall, hyponatremia, hypokalemia, MÓNICA, hepatic failure and transaminitis IV fluids and IV calcium gluconate Nephrology consult appreciated 10/21/2021 Hypokalemia resolved Creatinine improved from 3 to 2.7 Nephrology and GI consult appreciated Objective - Constitutional Vitals: Vital Signs - 12hr 10/21/21 10/21/21 10/21/21 14:00 18:00 19:34 Temperature 98.3 F Pulse Rate 72 88 Pulse Rate [ 70 From Monitor] Respiratory 16 16 Rate Blood Pressure 136/67 O2 Sat by Pulse 100 99 Oximetry 10/21/21 23:30 Temperature 98.1 F Pulse Rate 88 Pulse Rate [ From Monitor] Respiratory 16 Rate Blood Pressure 105/41 O2 Sat by Pulse 99 Oximetry General appearance: Present: no acute distress, well-nourished - EENT Eyes: PERRL, EOM intact ENT: hearing intact, clear oral mucosa Ears: bilateral: normal - Neck Neck: supple, normal ROM - Respiratory Respiratory effort: normal Respiratory: bilateral: CTA - Breasts Breasts: normal - Cardiovascular Heart rate: 78 Rhythm: regular Heart Sounds: Present: S1 & S2. Absent: gallop, rub Extremities: pulses intact, No edema, normal color, Full ROM - Gastrointestinal General gastrointestinal: Present: soft, non-tender, non-distended, normal bowel sounds - Genitourinary Male genitourinary: normal - Integumentary Integumentary: clear, warm, dry - Musculoskeletal Musculoskeletal: 1, strength equal bilaterally - Neurologic Neurologic: moves all extremities - Psychiatric Psychiatric: memory intact, appropriate mood/affect, intact judgment & insight - Labs CBC & Chem 7: 10/21/21 04:00 10/21/21 04:00 Labs: Abnormal lab results 10/21/21 10/21/21 10/21/21 Range/Units 04:00 04:00 Unknown WBC 11.8 H (4.5-11.0) K/mm3 RBC 2.94 L (3.65-5.03) M/mm3 Hgb 10.0 L (11.8-15.2) gm/dl Hct 29.8 L (35.5-45.6) % MCV 101 H (84-94) fl MCH 34 H (28-32) pg RDW 18.1 H (13.2-15.2) % Plt Count 107 L (140-440) K/mm3 Seg Neuts % (Manual) 87.0 H (40.0-70.0) % Lymphocytes % (Manual) 5.0 L (13.4-35.0) % Seg Neutrophils # Man 10.3 H (1.8-7.7) K/mm3 Lymphocytes # (Manual) 0.6 L (1.2-5.4) K/mm3 Sodium 131 L (137-145) mmol/L Carbon Dioxide 14 L (22-30) mmol/L BUN 63 H (9-20) mg/dL Creatinine 2.7 H (0.8-1.3) mg/dL Glucose 65 L (75-100) mg/dL Magnesium 2.60 H (1.7-2.3) mg/dL Total Bilirubin 14.30 H (0.1-1.2) mg/dL AST 223 H (5-40) units/L ALT 122 H (7-56) units/L Alkaline Phosphatase 591 H (35-129) units/L Ammonia 68.0 H (25-60) umol/L Total Protein 5.9 L (6.3-8.2) g/dL Albumin 1.9 L (3.9-5) g/dL PTH Intact (15-65) pg/mL 10/21/21 Range/Units Unknown WBC (4.5-11.0) K/mm3 RBC (3.65-5.03) M/mm3 Hgb (11.8-15.2) gm/dl Hct (35.5-45.6) % MCV (84-94) fl MCH (28-32) pg RDW (13.2-15.2) % Plt Count (140-440) K/mm3 Seg Neuts % (Manual) (40.0-70.0) % Lymphocytes % (Manual) (13.4-35.0) % Seg Neutrophils # Man (1.8-7.7) K/mm3 Lymphocytes # (Manual) (1.2-5.4) K/mm3 Sodium (137-145) mmol/L Carbon Dioxide (22-30) mmol/L BUN (9-20) mg/dL Creatinine (0.8-1.3) mg/dL Glucose (75-100) mg/dL Magnesium (1.7-2.3) mg/dL Total Bilirubin (0.1-1.2) mg/dL AST (5-40) units/L ALT (7-56) units/L Alkaline Phosphatase (35-129) units/L Ammonia (25-60) umol/L Total Protein (6.3-8.2) g/dL Albumin (3.9-5) g/dL PTH Intact 13.19 L (15-65) pg/mL
[2021-10-22] MEDS: LACTULOSE 20 GM/30 ML ORAL LIQD PO SCH ×4 (05:55→17:10)
[2021-10-22] MEDS: cefTRIAXone/NS 1 GM/50 ML 1 GM/50 ML BAG IV SCH (05:56)
[2021-10-22 06:07] LABS: Hematocrit 29.6 % (35.5-45.6); Hemoglobin 10.3 gm/dl (11.8-15.2); Mean Corpuscular HGB Conc 35 % (32-34); Mean Corpuscular Volume 100 fl (84-94); Platelet Count 125 K/mm3 (140-440); Red Blood Count 2.95 M/mm3 (3.65-5.03); Red Cell Distribution Width 18.1 % (13.2-15.2)
[2021-10-22 06:19] LABS: Albumin 1.9 g/dL (3.9-5); Calcium 8.6 mg/dL (8.4-10.2)
[2021-10-22 07:01] LABS: Total Cells Counted 100
[2021-10-22 07:02] LABS: Anisocytosis 1+; Basophils % (Manual) 0 % (0.0-1.8); Eosinophils % (Manual) 0 % (0.0-4.3)
[2021-10-22 07:03] LABS: Macrocytosis 1+; Platelet Estimate Consistent w Auto
[2021-10-22] MEDS: SODIUM BICARBONATE 650 MG TAB PO SCH ×3 (08:16→22:02)
--- NOTE | 2021-10-22 10:23 | Progress Note ---
Assessment and Plan # MÓNICA: unknown baseline, consider pre-renal vs HRS picture. Agree with ongoing fluid challenge. No acute obstruction noted. - creatinine improving 3.0->2.7> 2.3 - check serologies, urine studies still pending. Shall reorder - note PTH very low, nutritional? - continue IVF as tolerated - if not responding with high clinical concern for HRS, consider treatment with midodrine, octreotide, albumin - avoid nephrotoxins - renally dose medications - consider biopsy pending serologies - no immediate need for renal replacement therapy # Hyponatremia: IVF, improving # Liver Cirrhosis, Alcoholic Hepatitis, Ascites, Thrombocytopenia, H ypoalbuminemia: GI following, patient is currently undergoing MRCP # Lekuocytosis # Metabolic Acidosis: Shall place him on bicarbonate drip # BP/Volume: BP soft but stable, ascites noted. Patient is scheduled for paracentesis today Subjective Date of service: 10/22/21 Principal diagnosis: MÓNICA, Hyponatremia, Interval history: Patient is currently in MRI suite. Having MRCP done. Unable to examine patient as patient is in the MRI machine at this time Objective - Exam Narrative Exam: Unable to examine patient as he is in the MRI machine at this time - Vital Signs Vital signs: Vital Signs - 12hr 10/21/21 10/22/21 10/22/21 23:30 03:50 06:00 Temperature 98.1 F 97.8 F Pulse Rate 88 92 H Pulse Rate [ 70 From Monitor] Respiratory 16 20 16 Rate Blood Pressure 105/41 137/65 O2 Sat by Pulse 99 98 100 Oximetry 10/22/21 07:44 Temperature 97.2 F L Pulse Rate 92 H Pulse Rate [ From Monitor] Respiratory 18 Rate Blood Pressure 115/48 O2 Sat by Pulse 97 Oximetry - Lab 10/22/21 05:23 10/22/21 05:23 Most recent lab results Calcium 8.6 mg/dL (8.4-10.2) 10/22/21 05:23 Magnesium 2.60 mg/dL (1.7-2.3) H 10/21/21 04:00 Medications & Allergies - Medications Allergies/Adverse Reactions: Allergies No Known Allergies Allergy (Verified 10/19/21 21:57) Home Medications: Home Medications Medication Instructions Recorded Confirmed Last Taken Type No Known Home Medications [No 10/20/21 10/20/21 Unknown History Reported Home Medications] Active Medications: Generic Name Dose Route Start Last Admin Trade Name Freq PRN Reason Stop Dose Admin Sodium Chloride 1,000 mls @ 75 mls/hr 10/20/21 05:45 10/22/21 00:19 Nacl 0.9% 1000 Ml IV 75 mls/hr DIRECT YUKO Administration Ceftriaxone Sodium 1 gm in 50 mls @ 100 mls/hr 10/20/21 06:00 10/22/21 05:56 Rocephin/Ns 1 Gm/50 Ml IV 100 mls/hr Q24H YUKO Administration Protocol Lactulose 20 gm 10/20/21 18:00 10/22/21 05:55 Lactulose 20 Gm/30 Ml Oral Liqd PO Not Given Q6HR YUKO Lorazepam 2 mg 10/20/21 08:00 Lorazepam 2 Mg/Ml Vial IV Q1H PRN CIWA-Ar 8-15 Lorazepam 4 mg 10/20/21 08:00 Lorazepam 2 Mg/Ml Vial IV Q1H PRN CIWA-Ar 16-25 Lorazepam 4 mg 10/20/21 08:00 Lorazepam 2 Mg/Ml Vial IV Q15MIN PRN CIWA-Ar >25 Magnesium Hydroxide 30 ml 10/20/21 05:39 Magnesium Hydroxide (Mom) Oral Liqd Udc PO Q4H PRN Constipation Morphine Sulfate 2 mg 10/20/21 05:39 Morphine 2 Mg/1 Ml Inj IV Q4H PRN Pain, Moderate (4-6) Morphine Sulfate 4 mg 10/20/21 05:39 Morphine 4 Mg/1 Ml Inj IV Q4H PRN Pain , Severe (7-10) Ondansetron HCl 4 mg 10/20/21 05:39 Ondansetron 4 Mg/2 Ml Inj IV Q8H PRN Nausea And Vomiting Sodium Bicarbonate 650 mg 10/21/21 08:00 10/21/21 20:00 Sodium Bicarbonate 650 Mg Tab PO Not Given TID YUKO Sodium Chloride 10 ml 10/20/21 10:00 10/22/21 05:59 Sodium Chloride 0.9% 10 Ml Flush Syringe IV 10 ml BID YUKO Administration Sodium Chloride 10 ml 10/20/21 05:39 Sodium Chloride 0.9% 10 Ml Flush Syringe IV PRN PRN LINE FLUSH
--- NOTE | 2021-10-22 12:06 | Magnetic Resonance Report ---
MRI ABDOMEN WITHOUT CONTRAST INDICATION / CLINICAL INFORMATION: Liver cirrhosis, ascites, choledocholithiasis. TECHNIQUE: Multiplanar, multisequence series were obtained through the abdomen. COMPARISON: Limited abdominal ultrasound and CT abdomen and pelvis without contrast from 10/20/2021. FINDINGS: This exam is limited by motion artifact. LOWER CHEST: There is a trace right pleural effusion. No other significant abnormality. LIVER: Similar cirrhotic configuration. No other significant abnormality. GALLBLADDER: No significant abnormality. BILE DUCTS: The common duct is mildly dilated and measures up to 11 mm and contains multiple subcenti meter stones. No significant intrahepatic biliary ductal dilatation. PANCREAS: No significant abnormality. SPLEEN: No significant abnormality. ADRENALS: No significant abnormality. RIGHT KIDNEY / URETER: Multiple cysts are unchanged. No other significant abnormality. LEFT KIDNEY / URETER: Multiple cysts are unchanged. No other significant abnormality. STOMACH / VISUALIZED BOWEL: No significant abnormality. PERITONEUM: Similar moderate amount of ascites. No free air. No fluid collection. LYMPH NODES: No significant adenopathy. AORTA / ARTERIES: No significant abnormality. IVC / VEINS: No significant abnormality. ADDITIONAL FINDINGS: None. SKELETAL SYSTEM: No significant abnormality. IMPRESSION: 1. Choledocholithiasis with mild dilatation of the common duct. No significant intrahepatic biliary d uctal dilatation. 2. Similar findings of cirrhosis and a moderate amount of ascites. Signer Name: Hi Lima MD Signed: 10/22/2021 11:52 AM Workstation Name: [email or web address]
--- NOTE | 2021-10-22 12:08 | Gastroenterology Progress Note ---
Assessment and Plan 1. Decompensated cirrhosis 2. Abnormal liver enzymes/jaundice -suspected alcohol related liver disease (cirrhosis); last alcohol intake over 1 year ago per fam. liver enzymes stable. viral serologies negative. s/p paracentesis (f/u studies) an mrcp (r/o obstructive process). can resume diet. if no significant findings on imaging/fluid studies, hopefully can be discharged in next 1-2 days if clinically remains stable. Subjective Date of service: 10/22/21 Principal diagnosis: cirrhosis, jaundice Interval history: no events overnight. sleeping but arousable, appears alert. family at bedside and states his mentation is at baseline Objective - Constitutional Vitals: Temp Pulse Resp BP Pulse Ox 97.2 F L 92 H 18 115/48 100 10/22/21 07:44 10/22/21 07:44 10/22/21 07:44 10/22/21 07:44 10/22/21 10:55 General appearance: no acute distress - EENT Eyes: scleral icterus - Respiratory Respiratory effort: normal Respiratory: bilateral: CTA - Gastrointestinal General gastrointestinal: Present: soft, non-tender - Labs CBC & Chem 7: 10/22/21 05:23 10/22/21 05:23 Labs: Laboratory Results - last 24 hr 10/22/21 10/22/21 05:23 05:23 WBC 11.4 H RBC 2.95 L Hgb 10.3 L Hct 29.6 L MCV 100 H MCH 35 H MCHC 35 H RDW 18.1 H Plt Count 125 L Add Manual Diff Complete Total Counted 100 Seg Neuts % (Manual) 83.0 H Band Neutrophils % 0 Lymphocytes % (Manual) 14.0 Reactive Lymphs % (Man) 0 Monocytes % (Manual) 3.0 Eosinophils % (Manual) 0 Basophils % (Manual) 0 Metamyelocytes % 0 Myelocytes % 0 Promyelocytes % 0 Blast Cells % 0 Nucleated RBC % Not Reportable Seg Neutrophils # Man 9.5 H Band Neutrophils # 0.0 Lymphocytes # (Manual) 1.6 Abs React Lymphs (Man) 0.0 Monocytes # (Manual) 0.3 Eosinophils # (Manual) 0.0 Basophils # (Manual) 0.0 Metamyelocytes # 0.0 Myelocytes # 0.0 Promyelocytes # 0.0 Blast Cells # 0.0 WBC Morphology Not Reportable Hypersegmented Neuts Not Reportable Hyposegmented Neuts Not Reportable Hypogranular Neuts Not Reportable Smudge Cells Not Reportable Toxic Granulation Not Reportable Toxic Vacuolation Not Reportable Dohle Bodies Not Reportable Pelger-Huet Anomaly Not Reportable Sujata Rods Not Reportable Platelet Estimate Consistent w auto Clumped Platelets Not Reportable Plt Clumps, EDTA Not Reportable Large Platelets Not Reportable Giant Platelets Not Reportable Platelet Satelliting Not Reportable Plt Morphology Comment Not Reportable RBC Morphology Not Reportable Dimorphic RBCs Not Reportable Polychromasia Not Reportable Hypochromasia Not Reportable Poikilocytosis Not Reportable Anisocytosis 1+ Microcytosis Not Reportable Macrocytosis 1+ Spherocytes Not Reportable Pappenheimer Bodies Not Reportable Sickle Cells Not Reportable Target Cells Not Reportable Tear Drop Cells Not Reportable Ovalocytes Not Reportable Helmet Cells Not Reportable [place] Bodies Not Reportable [place] Rings Not Reportable Cleopatra Cells Not Reportable Bite Cells Not Reportable Crenated Cell Not Reportable Elliptocytes Not Reportable Acanthocytes (Spur) Not Reportable Rouleaux Not Reportable Hemoglobin C Crystals Not Reportable Schistocytes Not Reportable Malaria parasites Not Reportable Grzegorz Bodies Not Reportable Hem Pathologist Commnt No Sodium 134 L Potassium 4.8 Chloride 107.9 H Carbon Dioxide 11 L Anion Gap 20 BUN 64 H Creatinine 2.3 H Estimated GFR 28 BUN/Creatinine Ratio 28 Glucose 56 L Calcium 8.6 Total Bilirubin 14.60 H AST 284 H ALT 132 H Alkaline Phosphatase 654 H Total Protein 5.9 L Albumin 1.9 L Albumin/Globulin Ratio 0.5
[2021-10-22] MEDS: SODIUM BICARBONATE 150 MEQ in DEXTROSE 5% IN WATER 1,000 ML IV SCH (12:53)
[2021-10-22 12:55] LABS: Total Cells Counted 100 /mm3
--- NOTE | 2021-10-22 15:00 | Ultrasound Report ---
ULTRASOUND-GUIDED PARACENTESIS INDICATION / CLINICAL INFORMATION: Diagnostic para for decompensated cirrhosis. PROCEDURE: The risks (including but not limited to bleeding, infection, and bowel injury) and benefits were expl ained to the patient and signed, informed consent was obtained. A time out procedure was performed. Ultrasound was used to evaluate the abdomen and locate the largest ascites fluid pocket. Once the sk in was marked, the procedure site was prepped and draped in the usual sterile fashion and lidocaine w as used for local anesthesia. A skin zhane was made and a 6-German paracentesis catheter was placed. The patient was monitored closely throughout the procedure, and a total of 3600 mL of fluid was asp irated. No labs were ordered on the fluid. No sample submitted to lab. The patient tolerated the procedure well with no complications. IMPRESSION: 1. Successful ultrasound-guided paracentesis. Signer Name: Marshall Diaz MD Signed: 10/22/2021 12:50 PM Workstation Name: [id number]
--- NOTE | 2021-10-22 15:01 | Ultrasound Report ---
ULTRASOUND RENAL INDICATION / CLINICAL INFORMATION: MÓNICA. COMPARISON: MRCP performed today. FINDINGS: RIGHT KIDNEY: Length = 9.7 cm. - Echogenicity: Mildly echogenic. - Parenchymal Thickness: Normal. - Hydronephrosis: None. - Cyst / Mass: None. - Stones: None seen. LEFT KIDNEY: Length = 10.8 cm. - Echogenicity: Mildly echogenic. - Parenchymal Thickness: Mild thinning. - Hydronephrosis: Mild caliectasis. - Cyst / Mass: Simple appearing midpole cyst measuring 1.1 cm. - Stones: None seen. URINARY BLADDER: No significant abnormality. FREE FLUID: Mild ascites. ADDITIONAL FINDINGS: None. IMPRESSION: 1. Mild left caliectasis without evidence of obstructing mass or stone. 2. Findings suggestive of medical renal disease bilaterally. 3. Mild abdominal ascites. Scribed by: Chayo Rodriguez RDMS, LINNEA, HANNY Scribed: 10/22/2021 12:55 PM I have reviewed the images, agree with this report, and edited this report as needed. Signer Name: Mihai Ray MD Signed: 10/22/2021 1:59 PM Workstation Name: [email or web address]
[2021-10-22] MEDS: ALBUMIN HUMAN 25% (12.5 GM/50 ML) INJ IV SCH ×2 (17:10→22:54)
[2021-10-22 19:59] LABS: Creatinine,Urine 108.1 mg/dL (0.1-20.0)
[2021-10-22 20:16] LABS: Bilirubin,Urine Moderate (Negative); Color,Urine Yellow (Yellow)
[2021-10-22 20:17] LABS: Blood,Urine Negative (Negative); Protein,Urine <15 mg/dL mg/dL (Negative)
[2021-10-22 20:18] LABS: Urobilinogen,Urine 0.2 mg/dL (<2.0)
[2021-10-22 20:20] LABS: Mucus,Urine FEW /HPF; Sperm,Urine FEW /HPF (NP)
[2021-10-22 20:23] LABS: Ictotest,Urine Positive (Negative)
[2021-10-22 20:26] LABS: Fractional Sodium Excretion 0.3
[2021-10-23] MEDS: LACTULOSE 20 GM/30 ML ORAL LIQD PO SCH ×5 (01:02→23:12)
[2021-10-23] MEDS: SODIUM BICARBONATE 150 MEQ in DEXTROSE 5% IN WATER 1,000 ML IV SCH (04:07)
[2021-10-23] MEDS: ALBUMIN HUMAN 25% (12.5 GM/50 ML) INJ IV SCH ×3 (06:00→23:12)
[2021-10-23] MEDS: cefTRIAXone/NS 1 GM/50 ML 1 GM/50 ML BAG IV SCH (06:12)
[2021-10-23 06:39] LABS: Hematocrit 27.3 % (35.5-45.6); Hemoglobin 9.3 gm/dl (11.8-15.2); Mean Corpuscular HGB Conc 34 % (32-34); Mean Corpuscular Volume 101 fl (84-94); Platelet Count 119 K/mm3 (140-440); Red Cell Distribution Width 18.7 % (13.2-15.2)
[2021-10-23 06:40] LABS: INR 1.71 (0.87-1.13)
[2021-10-23 07:18] LABS: Albumin 2.1 g/dL (3.9-5); Calcium 8.9 mg/dL (8.4-10.2)
[2021-10-23 07:52] LABS: Total Cells Counted 100
[2021-10-23 07:55] LABS: Anisocytosis 1+; Hypochromasia 1+; Macrocytosis 1+; Poikilocytosis Few; Target Cells Few
[2021-10-23 07:56] LABS: Large Platelets Rare; Platelet Estimate Consistent w Auto; Spherocytes Rare
[2021-10-23] MEDS: SODIUM BICARBONATE 650 MG TAB PO SCH ×3 (08:05→21:42)
--- NOTE | 2021-10-23 09:21 | Progress Note ---
Assessment and Plan # MÓNICA: unknown baseline, consider pre-renal vs HRS picture. Agree with ongoing fluid challenge. No acute obstruction noted. - creatinine improving 3.0->2.7> 2.3 > 1.8 - check serologies, His urine does not show any dipstick blood or protein. Urine is also concentrated with a specific gravity of 1.025. Fractional excretion of sodium is 0.3%. Patient may have a prerenal component and/or hepatorenal syndrome - note PTH very low, nutritional? - continue IVF as tolerated -Continue IV albumin for now - avoid nephrotoxins - renally dose medications - no immediate need for renal replacement therapy # Hyponatremia: Much improved with hydration with isotonic fluid # Liver Cirrhosis, Alcoholic Hepatitis, Ascites, Thrombocytopenia, Hypoalbuminemia: GI following, patient is status post MRCP # Lekuocytosis # Metabolic Acidosis: Improving. Continue bicarbonate drip # BP/Volume: BP soft but stable, ascites noted. GI notes appreciated Subjective Date of service: 10/23/21 Principal diagnosis: cirrhosis, jaundice Interval history: Patient is awake and alert. Denies any shortness of breath. No nausea or vomiting. Does complain of some diarrhea. IV bicarbonate infusing Objective - Vital Signs Vital signs: Vital Signs - 12hr 10/22/21 10/22/21 10/22/21 22:00 22:25 23:51 Temperature 98.0 F 97.7 F Pulse Rate 88 86 Respiratory 20 20 Rate Blood Pressure 120/56 Blood Pressure 123/56 [Left] O2 Sat by Pulse 99 99 97 Oximetry 10/23/21 10/23/21 04:22 07:42 Temperature 98.0 F 98.8 F Pulse Rate 84 82 Respiratory 18 Rate Blood Pressure 115/56 Blood Pressure 120/52 [Left] O2 Sat by Pulse 98 99 Oximetry - General Appearance General appearance: well-developed, well-nourished, appears stated age EENT: PERRL, mucous membranes moist Neck: no JVD, no thyromegaly, no carotid bruit, supple Respiratory: Present: Clear to Ascultation Cardiology: regular, normal heart rate, S1S2, no murmurs Gastrointestinal: normoactive bowel sounds, distended, other (Ascites noted) Integumentary: other (No edema) - Lab 10/23/21 05:12 10/23/21 05:12 Most recent lab results Calcium 8.9 mg/dL (8.4-10.2) 10/23/21 05:12 Phosphorus 3.20 mg/dL (2.5-4.5) 10/23/21 05:12 Magnesium 2.50 mg/dL (1.7-2.3) H 10/23/21 05:12 Urine Creatinine 108.1 mg/dL (0.1-20.0) H 10/22/21 Unknown Urine Sodium 21 mmol/L 10/22/21 Unknown Medications & Allergies - Medications Allergies/Adverse Reactions: Allergies No Known Allergies Allergy (Verified 10/19/21 21:57) Home Medications: Home Medications Medication Instructions Recorded Confirmed Last Taken Type No Known Home Medications [No 10/20/21 10/20/21 Unknown History Reported Home Medications] Active Medications: Generic Name Dose Route Start Last Admin Trade Name Freq PRN Reason Stop Dose Admin Albumin Human 12.5 gm 10/22/21 14:00 10/23/21 06:00 Albumin Human 25% (12.5 Gm/50 Ml) Inj IV 10/24/21 06:01 12.5 gm Q8HR YUKO Administration Ceftriaxone Sodium 1 gm in 50 mls @ 100 mls/hr 10/20/21 06:00 10/23/21 06:12 Rocephin/Ns 1 Gm/50 Ml IV 100 mls/hr Q24H YUKO Administration Protocol Sodium Bicarbonate 150 meq/ 1,150 mls @ 75 mls/hr 10/22/21 11:00 10/23/21 04:07 Dextrose IV 75 mls/hr DIRECT YUKO Administration Lactulose 20 gm 10/20/21 18:00 10/23/21 06:12 Lactulose 20 Gm/30 Ml Oral Liqd PO 20 gm Q6HR YUKO Administration Lorazepam 2 mg 10/20/21 08:00 Lorazepam 2 Mg/Ml Vial IV Q1H PRN CIWA-Ar 8-15 Lorazepam 4 mg 10/20/21 08:00 Lorazepam 2 Mg/Ml Vial IV Q1H PRN CIWA-Ar 16-25 Lorazepam 4 mg 10/20/21 08:00 Lorazepam 2 Mg/Ml Vial IV Q15MIN PRN CIWA-Ar >25 Magnesium Hydroxide 30 ml 10/20/21 05:39 Magnesium Hydroxide (Mom) Oral Liqd Udc PO Q4H PRN Constipation Morphine Sulfate 2 mg 10/20/21 05:39 Morphine 2 Mg/1 Ml Inj IV Q4H PRN Pain, Moderate (4-6) Morphine Sulfate 4 mg 10/20/21 05:39 Morphine 4 Mg/1 Ml Inj IV Q4H PRN Pain , Severe (7-10) Ondansetron HCl 4 mg 10/20/21 05:39 Ondansetron 4 Mg/2 Ml Inj IV Q8H PRN Nausea And Vomiting Sodium Bicarbonate 650 mg 10/21/21 08:00 10/23/21 08:05 Sodium Bicarbonate 650 Mg Tab PO 650 mg TID YUKO Administration Sodium Chloride 10 ml 10/20/21 10:00 10/22/21 22:03 Sodium Chloride 0.9% 10 Ml Flush Syringe IV 10 ml BID YUKO Administration Sodium Chloride 10 ml 10/20/21 05:39 Sodium Chloride 0.9% 10 Ml Flush Syringe IV PRN PRN LINE FLUSH
--- NOTE | 2021-10-23 10:15 | Gastroenterology Progress Note ---
Assessment and Plan 1. Decompensated cirrhosis 2. Abnormal liver enzymes/jaundice 3. Dilated CBD 4. Sepsis -patient with underlying cirrhosis, suspect from alcohol, no recent intake and unknown recent baseline in labs. MRCP showed signs of CBD stone. afebrile, had mild wbc elevation on admission which is now better. high risk for ercp given decompensated cirrhosis and varices, recommend po abx (cipro or augmentin for 7 days). he will need close f/u in gi clinic. consider discharge tomorrow based on clinical course. -regarding ascites, sx's are better after paracentesis. renal following due to jayson which is improving. -mentation appears to be at baseline, tolerating po, awake and answers questions appropriately Subjective Date of service: 10/23/21 Principal diagnosis: cirrhosis, jaundice Interval history: no events overnight, tolerating po, family at bedside. pt's mental status at baseline per them Objective - Constitutional Vitals: Temp Pulse Resp BP Pulse Ox 98.8 F 82 18 115/56 99 10/23/21 07:42 10/23/21 07:42 10/23/21 04:22 10/23/21 07:42 10/23/21 07:42 General appearance: no acute distress - EENT Eyes: scleral icterus - Cardiovascular Rhythm: regular Heart Sounds: Present: S1 & S2 - Gastrointestinal General gastrointestinal: Present: soft, non-distended - Labs CBC & Chem 7: 10/23/21 05:12 10/23/21 05:12 Labs: Laboratory Results - last 24 hr 10/22/21 10/22/21 10/22/21 Unknown Unknown Unknown WBC RBC Hgb Hct MCV MCH MCHC RDW Plt Count Add Manual Diff Total Counted Seg Neuts % (Manual) Band Neutrophils % Lymphocytes % (Manual) Reactive Lymphs % (Man) Monocytes % (Manual) Eosinophils % (Manual) Basophils % (Manual) Metamyelocytes % Myelocytes % Promyelocytes % Blast Cells % Nucleated RBC % Seg Neutrophils # Man Band Neutrophils # Lymphocytes # (Manual) Abs React Lymphs (Man) Monocytes # (Manual) Eosinophils # (Manual) Basophils # (Manual) Metamyelocytes # Myelocytes # Promyelocytes # Blast Cells # WBC Morphology Hypersegmented Neuts Hyposegmented Neuts Hypogranular Neuts Smudge Cells Toxic Granulation Toxic Vacuolation Dohle Bodies Pelger-Huet Anomaly Sujata Rods Platelet Estimate Clumped Platelets Plt Clumps, EDTA Large Platelets Giant Platelets Platelet Satelliting Plt Morphology Comment RBC Morphology Dimorphic RBCs Polychromasia Hypochromasia Poikilocytosis Anisocytosis Microcytosis Macrocytosis Spherocytes Pappenheimer Bodies Sickle Cells Target Cells Tear Drop Cells Ovalocytes Helmet Cells [place] Bodies [place] Rings [place] Cells Bite Cells Crenated Cell Elliptocytes Acanthocytes (Spur) Rouleaux Hemoglobin C Crystals Schistocytes Malaria parasites Grzegorz Bodies Hem Pathologist Commnt PT INR Sodium Potassium Chloride Carbon Dioxide Anion Gap BUN Creatinine Estimated GFR BUN/Creatinine Ratio Glucose Calcium Phosphorus Magnesium Total Bilirubin AST ALT Alkaline Phosphatase Total Protein Albumin Albumin/Globulin Ratio Urine Color Yellow Urine Turbidity Clear Urine pH 6.0 Ur Specific [place] 1.025 Urine Protein <15 mg/dl Urine Glucose (UA) Negative Urine Ketones Negative Urine Blood Negative Urine Nitrite Negative Urine Bilirubin Moderate Urine Ictotest Positive Urine Urobilinogen 0.2 Ur Leukocyte Esterase Negative Urine WBC (Auto) 3.0 Urine RBC (Auto) 2.0 U Epithel Cells (Auto) 2.0 Urine Mucus Few Urine Sperm Few Urine Creatinine 108.1 H Urine Sodium 21 Fraction Sodium Excret 0.3 Fluid Type Ascitic Fluid Color Yajaira Fluid Appearance Hazy Fluid WBC 81.3 Fluid RBC 2650 Fluid Seg Neutrophils 24.0 Fluid Lymphocytes 27.0 Fluid Reactive Lymphs Not Reportable Fluid Monocytes 49.0 Fluid Eosinophils Not Reportable Fluid Basophils Not Reportable 10/23/21 10/23/21 10/23/21 05:12 05:12 05:12 WBC 9.7 RBC 2.70 L Hgb 9.3 L Hct 27.3 L MCV 101 H MCH 35 H MCHC 34 RDW 18.7 H Plt Count 119 L Add Manual Diff Complete Total Counted 100 Seg Neuts % (Manual) 79.0 H Band Neutrophils % 0 Lymphocytes % (Manual) 12.0 L Reactive Lymphs % (Man) 0 Monocytes % (Manual) 6.0 Eosinophils % (Manual) 1.0 Basophils % (Manual) 1.0 Metamyelocytes % 1.0 Myelocytes % 0 Promyelocytes % 0 Blast Cells % 0 Nucleated RBC % Not Reportable Seg Neutrophils # Man 7.7 Band Neutrophils # 0.0 Lymphocytes # (Manual) 1.2 Abs React Lymphs (Man) 0.0 Monocytes # (Manual) 0.6 Eosinophils # (Manual) 0.1 Basophils # (Manual) 0.1 Metamyelocytes # 0.1 Myelocytes # 0.0 Promyelocytes # 0.0 Blast Cells # 0.0 WBC Morphology Not Reportable Hypersegmented Neuts Not Reportable Hyposegmented Neuts Rare Hypogranular Neuts Not Reportable Smudge Cells Not Reportable Toxic Granulation Not Reportable Toxic Vacuolation Not Reportable Dohle Bodies Not Reportable Pelger-Huet Anomaly Not Reportable Sujata Rods Not Reportable Platelet Estimate Consistent w auto Clumped Platelets Not Reportable Plt Clumps, EDTA Not Reportable Large Platelets Rare Giant Platelets Not Reportable Platelet Satelliting Not Reportable Plt Morphology Comment Not Reportable RBC Morphology Not Reportable Dimorphic RBCs Not Reportable Polychromasia Not Reportable Hypochromasia 1+ Poikilocytosis Few Anisocytosis 1+ Microcytosis Not Reportable Macrocytosis 1+ Spherocytes Rare Pappenheimer Bodies Not Reportable Sickle Cells Not Reportable Target Cells Few Tear Drop Cells Not Reportable Ovalocytes Not Reportable Helmet Cells Not Reportable [place] Bodies Not Reportable [place] Rings Not Reportable [place] Cells Not Reportable Bite Cells Not Reportable Crenated Cell Not Reportable Elliptocytes Not Reportable Acanthocytes (Spur) Rare Rouleaux Not Reportable Hemoglobin C Crystals Not Reportable Schistocytes Not Reportable Malaria parasites Not Reportable Grzegorz Bodies Not Reportable Hem Pathologist Commnt No PT 22.2 H INR 1.71 H Sodium 140 Potassium 3.7 D Chloride 110.8 H Carbon Dioxide 16 L Anion Gap 17 BUN 57 H Creatinine 1.8 H Estimated GFR 37 BUN/Creatinine Ratio 32 Glucose 119 H Calcium 8.9 Phosphorus 3.20 Magnesium 2.50 H Total Bilirubin 14.80 H AST 323 H ALT 130 H Alkaline Phosphatase 609 H Total Protein 5.8 L Albumin 2.1 L Albumin/Globulin Ratio 0.6 Urine Color Urine Turbidity Urine pH Ur Specific [place] Urine Protein Urine Glucose (UA) Urine Ketones Urine Blood Urine Nitrite Urine Bilirubin Urine Ictotest Urine Urobilinogen Ur Leukocyte Esterase Urine WBC (Auto) Urine RBC (Auto) U Epithel Cells (Auto) Urine Mucus Urine Sperm Urine Creatinine Urine Sodium Fraction Sodium Excret Fluid Type Fluid Color Fluid Appearance Fluid WBC Fluid RBC Fluid Seg Neutrophils Fluid Lymphocytes Fluid Reactive Lymphs Fluid Monocytes Fluid Eosinophils Fluid Basophils
[2021-10-23] MEDS: levoFLOXacin 250 MG TAB PO SCH (12:41)
--- NOTE | 2021-10-23 14:07 | Progress Note ---
Assessment and Plan Assessment and plan: #Hepatic encephalopathyresolved #Newly diagnosed decompensated alcoholic cirrhosisstable #Acute hyponatremiaresolved #Hepatic failure Status post paracentesis with removal of 3.6 L (10/22/2021). Labs were ordered prior to procedure but not tested on ascitic fluid. Gastroenterology consulted; appreciate recs Continue on lactulose 4 times daily, Levaquin 250 mg daily x7 days (completes on 10/30/2021). #AKIimproved Creatinine 2.3--> 1.8 Renally dose medications and avoid nephrotoxic drugs. Nephrology consulted; appreciate #Hyperkalemiaresolved Potassium 3.7 #Ground-level fall Unremarkable imaging. Likely secondary to acute hepatic encephalopathy. #Advanced care planning -Disease education conducted, care plan discussed, diagnoses discussed, progno sis discussed, and patient acknowledges understanding with care plan -Time: +30 min #Discharge planning - Case management has been made aware. - Discharge is tentatively tomorrow Disposition Plan: Pending discharge tomorrow Total Time Spent with Patient (Minutes): 45 min History Interval history: No acute events overnight. Hospitalist Physical - Constitutional Vitals: Temp Pulse Resp BP Pulse Ox 98.0 F 81 18 119/55 98 10/23/21 11:33 10/23/21 11:33 10/23/21 04:22 10/23/21 11:33 10/23/21 11:33 General appearance: Present: no acute distress, well-nourished - EENT Eyes: Present: PERRL, EOM intact, scleral icterus ENT: hearing intact, clear oral mucosa, dentition normal, other (jaundiced) - Neck Neck: Present: supple, normal ROM - Respiratory Respiratory effort: normal Respiratory: bilateral: CTA - Cardiovascular Rhythm: regular Heart Sounds: Present: S1 & S2 - Extremities Extremities: no ischemia, pulses intact, pulses symmetrical, No edema, normal temperature, normal color Peripheral Pulses: within normal limits - Abdominal General gastrointestinal: soft, non-tender, distended (mild ascites without fluid wave), normal bowel sounds, other - Integumentary Integumentary: Present: clear, warm, dry - Psychiatric Psychiatric: appropriate mood/affect, cooperative - Neurologic Neurologic: CNII-XII intact - Allied Health Allied health notes reviewed: nursing Results - Labs CBC & Chem 7: 10/23/21 05:12 10/23/21 05:12 Labs: Laboratory Last Values WBC 9.7 K/mm3 (4.5-11.0) 10/23/21 05:12 RBC 2.70 M/mm3 (3.65-5.03) L 10/23/21 05:12 Hgb 9.3 gm/dl (11.8-15.2) L 10/23/21 05:12 Hct 27.3 % (35.5-45.6) L 10/23/21 05:12 MCV 101 fl (84-94) H 10/23/21 05:12 MCH 35 pg (28-32) H 10/23/21 05:12 MCHC 34 % (32-34) 10/23/21 05:12 RDW 18.7 % (13.2-15.2) H 10/23/21 05:12 Plt Count 119 K/mm3 (140-440) L 10/23/21 05:12 Add Manual Diff Complete 10/23/21 05:12 Total Counted 100 10/23/21 05:12 Seg Neuts % (Manual) 79.0 % (40.0-70.0) H 10/23/21 05:12 Band Neutrophils % 0 % 10/23/21 05:12 Lymphocytes % (Manual) 12.0 % (13.4-35.0) L 10/23/21 05:12 Reactive Lymphs % (Man) 0 % 10/23/21 05:12 Monocytes % (Manual) 6.0 % (0.0-7.3) 10/23/21 05:12 Eosinophils % (Manual) 1.0 % (0.0-4.3) 10/23/21 05:12 Basophils % (Manual) 1.0 % (0.0-1.8) 10/23/21 05:12 Metamyelocytes % 1.0 % 10/23/21 05:12 Myelocytes % 0 % 10/23/21 05:12 Promyelocytes % 0 % 10/23/21 05:12 Blast Cells % 0 % 10/23/21 05:12 Nucleated RBC % Not Reportable 10/23/21 05:12 Seg Neutrophils # Man 7.7 K/mm3 (1.8-7.7) 10/23/21 05:12 Band Neutrophils # 0.0 K/mm3 10/23/21 05:12 Lymphocytes # (Manual) 1.2 K/mm3 (1.2-5.4) 10/23/21 05:12 Abs React Lymphs (Man) 0.0 K/mm3 10/23/21 05:12 Monocytes # (Manual) 0.6 K/mm3 (0.0-0.8) 10/23/21 05:12 Eosinophils # (Manual) 0.1 K/mm3 (0.0-0.4) 10/23/21 05:12 Basophils # (Manual) 0.1 K/mm3 (0.0-0.1) 10/23/21 05:12 Metamyelocytes # 0.1 K/mm3 10/23/21 05:12 Myelocytes # 0.0 K/mm3 10/23/21 05:12 Promyelocytes # 0.0 K/mm3 10/23/21 05:12 Blast Cells # 0.0 K/mm3 10/23/21 05:12 WBC Morphology Not Reportable 10/23/21 05:12 Hypersegmented Neuts Not Reportable 10/23/21 05:12 Hyposegmented Neuts Rare 10/23/21 05:12 Hypogranular Neuts Not Reportable 10/23/21 05:12 Smudge Cells Not Reportable 10/23/21 05:12 Toxic Granulation Not Reportable 10/23/21 05:12 Toxic Vacuolation Not Reportable 10/23/21 05:12 Dohle Bodies Not Reportable 10/23/21 05:12 Pelger-Huet Anomaly Not Reportable 10/23/21 05:12 Sujata Rods Not Reportable 10/23/21 05:12 Platelet Estimate Consistent w auto 10/23/21 05:12 Clumped Platelets Not Reportable 10/23/21 05:12 Plt Clumps, EDTA Not Reportable 10/23/21 05:12 Large Platelets Rare 10/23/21 05:12 Giant Platelets Not Reportable 10/23/21 05:12 Platelet Satelliting Not Reportable 10/23/21 05:12 Plt Morphology Comment Not Reportable 10/23/21 05:12 RBC Morphology Not Reportable 10/23/21 05:12 Dimorphic RBCs Not Reportable 10/23/21 05:12 Polychromasia Not Reportable 10/23/21 05:12 Hypochromasia 1+ 10/23/21 05:12 Poikilocytosis Few 10/23/21 05:12 Anisocytosis 1+ 10/23/21 05:12 Microcytosis Not Reportable 10/23/21 05:12 Macrocytosis 1+ 10/23/21 05:12 Spherocytes Rare 10/23/21 05:12 Pappenheimer Bodies Not Reportable 10/23/21 05:12 Sickle Cells Not Reportable 10/23/21 05:12 Target Cells Few 10/23/21 05:12 Tear Drop Cells Not Reportable 10/23/21 05:12 Ovalocytes Not Reportable 10/23/21 05:12 Helmet Cells Not Reportable 10/23/21 05:12 [place] Bodies Not Reportable 10/23/21 05:12 [place] Rings Not Reportable 10/23/21 05:12 [place] Cells Not Reportable 10/23/21 05:12 Bite Cells Not Reportable 10/23/21 05:12 Crenated Cell Not Reportable 10/23/21 05:12 Elliptocytes Not Reportable 10/23/21 05:12 Acanthocytes (Spur) Rare 10/23/21 05:12 Rouleaux Not Reportable 10/23/21 05:12 Hemoglobin C Crystals Not Reportable 10/23/21 05:12 Schistocytes Not Reportable 10/23/21 05:12 Malaria parasites Not Reportable 10/23/21 05:12 Grzegorz Bodies Not Reportable 10/23/21 05:12 Hem Pathologist Commnt No 10/23/21 05:12 PT 22.2 Sec. (12.2-14.9) H 10/23/21 05:12 INR 1.71 (0.87-1.13) H 10/23/21 05:12 APTT 43.0 Sec. (24.2-36.6) H 10/20/21 02:50 Sodium 140 mmol/L (137-145) 10/23/21 05:12 Potassium 3.7 mmol/L (3.6-5.0) D 10/23/21 05:12 Chloride 110.8 mmol/L (98-107) H 10/23/21 05:12 Carbon Dioxide 16 mmol/L (22-30) L 10/23/21 05:12 Anion Gap 17 mmol/L 10/23/21 05:12 BUN 57 mg/dL (9-20) H 10/23/21 05:12 Creatinine 1.8 mg/dL (0.8-1.3) H 10/23/21 05:12 Estimated GFR 37 ml/min 10/23/21 05:12 BUN/Creatinine Ratio 32 % 10/23/21 05:12 Glucose 119 mg/dL (75-100) H 10/23/21 05:12 Calcium 8.9 mg/dL (8.4-10.2) 10/23/21 05:12 Phosphorus 3.20 mg/dL (2.5-4.5) 10/23/21 05:12 Magnesium 2.50 mg/dL (1.7-2.3) H 10/23/21 05:12 Total Bilirubin 14.80 mg/dL (0.1-1.2) H 10/23/21 05:12 AST 323 units/L (5-40) H 10/23/21 05:12 ALT 130 units/L (7-56) H 10/23/21 05:12 Alkaline Phosphatase 609 units/L (35-129) H 10/23/21 05:12 Ammonia 68.0 umol/L (25-60) H 10/21/21 Unknown Total Protein 5.8 g/dL (6.3-8.2) L 10/23/21 05:12 Albumin 2.1 g/dL (3.9-5) L 10/23/21 05:12 Albumin/Globulin Ratio 0.6 % 10/23/21 05:12 Amylase 41 units/L (27-131) 10/21/21 04:00 PTH Intact 13.19 pg/mL (15-65) L 10/21/21 Unknown Urine Color Yellow (Yellow) 10/22/21 Unknown Urine Turbidity Clear (Clear) 10/22/21 Unknown Urine pH 6.0 (5.0-7.0) 10/22/21 Unknown Ur Specific [place] 1.025 (1.003-1.030) 10/22/21 Unknown Urine Protein <15 mg/dl mg/dL (Negative) 10/22/21 Unknown Urine Glucose (UA) Negative mg/dL (Negative) 10/22/21 Unknown Urine Ketones Negative mg/dL (Negative) 10/22/21 Unknown Urine Blood Negative (Negative) 10/22/21 Unknown Urine Nitrite Negative (Negative) 10/22/21 Unknown Urine Bilirubin Moderate (Negative) 10/22/21 Unknown Urine Ictotest Positive (Negative) 10/22/21 Unknown Urine Urobilinogen 0.2 mg/dL (<2.0) 10/22/21 Unknown Ur Leukocyte Esterase Negative (Negative) 10/22/21 Unknown Urine WBC (Auto) 3.0 /HPF (0.0-6.0) 10/22/21 Unknown Urine RBC (Auto) 2.0 /HPF (0.0-6.0) 10/22/21 Unknown U Epithel Cells (Auto) 2.0 /HPF (0-13.0) 10/22/21 Unknown Urine Mucus Few /HPF 10/22/21 Unknown Urine Sperm Few /HPF (HOSPICE NURSE) 10/22/21 Unknown Urine Creatinine 108.1 mg/dL (0.1-20.0) H 10/22/21 Unknown Urine Sodium 21 mmol/L 10/22/21 Unknown Fraction Sodium Excret 0.3 10/22/21 Unknown Fluid Type Ascitic 10/22/21 Unknown Fluid Color Yajaira 10/22/21 Unknown Fluid Appearance Hazy 10/22/21 Unknown Fluid WBC 81.3 /mm3 10/22/21 Unknown Fluid RBC 2650 /mm3 10/22/21 Unknown Fluid Seg Neutrophils 24.0 % 10/22/21 Unknown Fluid Lymphocytes 27.0 % 10/22/21 Unknown Fluid Reactive Lymphs Not Reportable 10/22/21 Unknown Fluid Monocytes 49.0 % 10/22/21 Unknown Fluid Eosinophils Not Reportable 10/22/21 Unknown Fluid Basophils Not Reportable 10/22/21 Unknown Plasma/Serum Alcohol < 0.01 % (0-0.07) 10/20/21 02:50 Hepatitis A IgM Ab Non-reactive (NonReactive) 10/20/21 Unknown Hep Bs Antigen Non-reactive (Negative) 10/20/21 Unknown Hep B Core IgM Ab Non-reactive (NonReactive) 10/20/21 Unknown Hepatitis C Antibody Non-reactive (NonReactive) 10/20/21 Unknown Microbiology: Microbiology 10/22/21 Unknown Ascities Fluid Gram Stain - Final Tom/IV: Voiding Method Incontinent Active Medications - Current Medications Current Medications: Generic Name Dose Route Start Last Admin Trade Name Freq PRN Reason Stop Dose Admin Albumin Human 12.5 gm 10/22/21 14:00 10/23/21 13:04 Albumin Human 25% (12.5 Gm/50 Ml) Inj IV 10/24/21 06:01 12.5 gm Q8HR YUKO Administration Sodium Bicarbonate 150 meq/ 1,150 mls @ 75 mls/hr 10/22/21 11:00 10/23/21 04:07 Dextrose IV 75 mls/hr DIRECT YUKO Administration Lactulose 20 gm 10/20/21 18:00 10/23/21 12:41 Lactulose 20 Gm/30 Ml Oral Liqd PO 20 gm Q6HR YUKO Administration Levofloxacin 250 mg 10/23/21 11:00 10/23/21 12:41 Levofloxacin 250 Mg Tab PO 250 mg Q24HR YUKO Administration Protocol Lorazepam 2 mg 10/20/21 08:00 Lorazepam 2 Mg/Ml Vial IV Q1H PRN CIWA-Ar 8-15 Lorazepam 4 mg 10/20/21 08:00 Lorazepam 2 Mg/Ml Vial IV Q1H PRN CIWA-Ar 16-25 Lorazepam 4 mg 10/20/21 08:00 Lorazepam 2 Mg/Ml Vial IV Q15MIN PRN CIWA-Ar >25 Magnesium Hydroxide 30 ml 10/20/21 05:39 Magnesium Hydroxide (Mom) Oral Liqd Udc PO Q4H PRN Constipation Morphine Sulfate 2 mg 10/20/21 05:39 Morphine 2 Mg/1 Ml Inj IV Q4H PRN Pain, Moderate (4-6) Morphine Sulfate 4 mg 10/20/21 05:39 Morphine 4 Mg/1 Ml Inj IV Q4H PRN Pain , Severe (7-10) Ondansetron HCl 4 mg 10/20/21 05:39 Ondansetron 4 Mg/2 Ml Inj IV Q8H PRN Nausea And Vomiting Sodium Bicarbonate 650 mg 10/21/21 08:00 10/23/21 13:04 Sodium Bicarbonate 650 Mg Tab PO 650 mg TID YUKO Administration Sodium Chloride 10 ml 10/20/21 10:00 10/23/21 10:10 Sodium Chloride 0.9% 10 Ml Flush Syringe IV 10 ml BID YUKO Administration Sodium Chloride 10 ml 10/20/21 05:39 Sodium Chloride 0.9% 10 Ml Flush Syringe IV PRN PRN LINE FLUSH
--- NOTE | 2021-10-23 14:21 | Progress Note ---
Assessment and Plan Assessment and plan: #Hepatic encephalopathyresolved #Newly diagnosed decompensated alcoholic cirrhosisstable #Acute hyponatremiaresolved #Hepatic failure Status post paracentesis with removal of 3.6 L (10/22/2021). Pending labs to evaluate ascitic fluid. Gastroenterology consulted; appreciate recs Pending MRCP for further evaluation of possible biliary obstruction. #AKIimproved Creatinine 2.7 -->2.3 Renally dose medications and avoid nephrotoxic drugs. Nephrology consulted; appreciate #Hyperkalemiaresolved Potassium 3.7 #Ground-level fall Unremarkable imaging. Likely secondary to acute hepatic encephalopathy. #Advanced care planning -Disease education conducted, care plan discussed, diagnoses discussed, prognosis discussed, and patient acknowledges understanding with care plan -Time: +30 min Disposition Plan: Continue medical management Total Time Spent with Patient (Minutes): 45 minutes History Interval history: No acute events overnight. Hospitalist Physical - Constitutional Vitals: Temp Pulse Resp BP Pulse Ox 98.0 F 81 18 119/55 98 10/23/21 11:33 10/23/21 11:33 10/23/21 04:22 10/23/21 11:33 10/23/21 11:33 General appearance: Present: no acute distress, well-nourished, other (Jaundiced) - EENT Eyes: Present: PERRL, EOM intact ENT: hearing intact, clear oral mucosa - Neck Neck: Present: supple, normal ROM - Respiratory Respiratory effort: normal Respiratory: bilateral: CTA - Cardiovascular Rhythm: regular Heart Sounds: Present: S1 & S2 - Extremities Extremities: no ischemia, pulses intact, pulses symmetrical, No edema, normal temperature, normal color Peripheral Pulses: within normal limits - Abdominal General gastrointestinal: soft, non-tender, distended, normal bowel sounds - Integumentary Integumentary: Present: clear, warm, dry - Psychiatric Psychiatric: appropriate mood/affect, cooperative - Neurologic Neurologic: CNII-XII intact, moves all extremities - Allied Health Allied health notes reviewed: nursing Results - Labs CBC & Chem 7: 10/23/21 05:12 10/23/21 05:12 Labs: Laboratory Last Values WBC 9.7 K/mm3 (4.5-11.0) 10/23/21 05:12 RBC 2.70 M/mm3 (3.65-5.03) L 10/23/21 05:12 Hgb 9.3 gm/dl (11.8-15.2) L 10/23/21 05:12 Hct 27.3 % (35.5-45.6) L 10/23/21 05:12 MCV 101 fl (84-94) H 10/23/21 05:12 MCH 35 pg (28-32) H 10/23/21 05:12 MCHC 34 % (32-34) 10/23/21 05:12 RDW 18.7 % (13.2-15.2) H 10/23/21 05:12 Plt Count 119 K/mm3 (140-440) L 10/23/21 05:12 Add Manual Diff Complete 10/23/21 05:12 Total Counted 100 10/23/21 05:12 Seg Neuts % (Manual) 79.0 % (40.0-70.0) H 10/23/21 05:12 Band Neutrophils % 0 % 10/23/21 05:12 Lymphocytes % (Manual) 12.0 % (13.4-35.0) L 10/23/21 05:12 Reactive Lymphs % (Man) 0 % 10/23/21 05:12 Monocytes % (Manual) 6.0 % (0.0-7.3) 10/23/21 05:12 Eosinophils % (Manual) 1.0 % (0.0-4.3) 10/23/21 05:12 Basophils % (Manual) 1.0 % (0.0-1.8) 10/23/21 05:12 Metamyelocytes % 1.0 % 10/23/21 05:12 Myelocytes % 0 % 10/23/21 05:12 Promyelocytes % 0 % 10/23/21 05:12 Blast Cells % 0 % 10/23/21 05:12 Nucleated RBC % Not Reportable 10/23/21 05:12 Seg Neutrophils # Man 7.7 K/mm3 (1.8-7.7) 10/23/21 05:12 Band Neutrophils # 0.0 K/mm3 10/23/21 05:12 Lymphocytes # (Manual) 1.2 K/mm3 (1.2-5.4) 10/23/21 05:12 Abs React Lymphs (Man) 0.0 K/mm3 10/23/21 05:12 Monocytes # (Manual) 0.6 K/mm3 (0.0-0.8) 10/23/21 05:12 Eosinophils # (Manual) 0.1 K/mm3 (0.0-0.4) 10/23/21 05:12 Basophils # (Manual) 0.1 K/mm3 (0.0-0.1) 10/23/21 05:12 Metamyelocytes # 0.1 K/mm3 10/23/21 05:12 Myelocytes # 0.0 K/mm3 10/23/21 05:12 Promyelocytes # 0.0 K/mm3 10/23/21 05:12 Blast Cells # 0.0 K/mm3 10/23/21 05:12 WBC Morphology Not Reportable 10/23/21 05:12 Hypersegmented Neuts Not Reportable 10/23/21 05:12 Hyposegmented Neuts Rare 10/23/21 05:12 Hypogranular Neuts Not Reportable 10/23/21 05:12 Smudge Cells Not Reportable 10/23/21 05:12 Toxic Granulation Not Reportable 10/23/21 05:12 Toxic Vacuolation Not Reportable 10/23/21 05:12 Dohle Bodies Not Reportable 10/23/21 05:12 Pelger-Huet Anomaly Not Reportable 10/23/21 05:12 Sujata Rods Not Reportable 10/23/21 05:12 Platelet Estimate Consistent w auto 10/23/21 05:12 Clumped Platelets Not Reportable 10/23/21 05:12 Plt Clumps, EDTA Not Reportable 10/23/21 05:12 Large Platelets Rare 10/23/21 05:12 Giant Platelets Not Reportable 10/23/21 05:12 Platelet Satelliting Not Reportable 10/23/21 05:12 Plt Morphology Comment Not Reportable 10/23/21 05:12 RBC Morphology Not Reportable 10/23/21 05:12 Dimorphic RBCs Not Reportable 10/23/21 05:12 Polychromasia Not Reportable 10/23/21 05:12 Hypochromasia 1+ 10/23/21 05:12 Poikilocytosis Few 10/23/21 05:12 Anisocytosis 1+ 10/23/21 05:12 Microcytosis Not Reportable 10/23/21 05:12 Macrocytosis 1+ 10/23/21 05:12 Spherocytes Rare 10/23/21 05:12 Pappenheimer Bodies Not Reportable 10/23/21 05:12 Sickle Cells Not Reportable 10/23/21 05:12 Target Cells Few 10/23/21 05:12 Tear Drop Cells Not Reportable 10/23/21 05:12 Ovalocytes Not Reportable 10/23/21 05:12 Helmet Cells Not Reportable 10/23/21 05:12 [place] Bodies Not Reportable 10/23/21 05:12 [place] Rings Not Reportable 10/23/21 05:12 [place] Cells Not Reportable 10/23/21 05:12 Bite Cells Not Reportable 10/23/21 05:12 Crenated Cell Not Reportable 10/23/21 05:12 Elliptocytes Not Reportable 10/23/21 05:12 Acanthocytes (Spur) Rare 10/23/21 05:12 Rouleaux Not Reportable 10/23/21 05:12 Hemoglobin C Crystals Not Reportable 10/23/21 05:12 Schistocytes Not Reportable 10/23/21 05:12 Malaria parasites Not Reportable 10/23/21 05:12 Grzegorz Bodies Not Reportable 10/23/21 05:12 Hem Pathologist Commnt No 10/23/21 05:12 PT 22.2 Sec. (12.2-14.9) H 10/23/21 05:12 INR 1.71 (0.87-1.13) H 10/23/21 05:12 APTT 43.0 Sec. (24.2-36.6) H 10/20/21 02:50 Sodium 140 mmol/L (137-145) 10/23/21 05:12 Potassium 3.7 mmol/L (3.6-5.0) D 10/23/21 05:12 Chloride 110.8 mmol/L (98-107) H 10/23/21 05:12 Carbon Dioxide 16 mmol/L (22-30) L 10/23/21 05:12 Anion Gap 17 mmol/L 10/23/21 05:12 BUN 57 mg/dL (9-20) H 10/23/21 05:12 Creatinine 1.8 mg/dL (0.8-1.3) H 10/23/21 05:12 Estimated GFR 37 ml/min 10/23/21 05:12 BUN/Creatinine Ratio 32 % 10/23/21 05:12 Glucose 119 mg/dL (75-100) H 10/23/21 05:12 Calcium 8.9 mg/dL (8.4-10.2) 10/23/21 05:12 Phosphorus 3.20 mg/dL (2.5-4.5) 10/23/21 05:12 Magnesium 2.50 mg/dL (1.7-2.3) H 10/23/21 05:12 Total Bilirubin 14.80 mg/dL (0.1-1.2) H 10/23/21 05:12 AST 323 units/L (5-40) H 10/23/21 05:12 ALT 130 units/L (7-56) H 10/23/21 05:12 Alkaline Phosphatase 609 units/L (35-129) H 10/23/21 05:12 Ammonia 68.0 umol/L (25-60) H 10/21/21 Unknown Total Protein 5.8 g/dL (6.3-8.2) L 10/23/21 05:12 Albumin 2.1 g/dL (3.9-5) L 10/23/21 05:12 Albumin/Globulin Ratio 0.6 % 10/23/21 05:12 Amylase 41 units/L (27-131) 10/21/21 04:00 PTH Intact 13.19 pg/mL (15-65) L 10/21/21 Unknown Urine Color Yellow (Yellow) 10/22/21 Unknown Urine Turbidity Clear (Clear) 10/22/21 Unknown Urine pH 6.0 (5.0-7.0) 10/22/21 Unknown Ur Specific [place] 1.025 (1.003-1.030) 10/22/21 Unknown Urine Protein <15 mg/dl mg/dL (Negative) 10/22/21 Unknown Urine Glucose (UA) Negative mg/dL (Negative) 10/22/21 Unknown Urine Ketones Negative mg/dL (Negative) 10/22/21 Unknown Urine Blood Negative (Negative) 10/22/21 Unknown Urine Nitrite Negative (Negative) 10/22/21 Unknown Urine Bilirubin Moderate (Negative) 10/22/21 Unknown Urine Ictotest Positive (Negative) 10/22/21 Unknown Urine Urobilinogen 0.2 mg/dL (<2.0) 10/22/21 Unknown Ur Leukocyte Esterase Negative (Negative) 10/22/21 Unknown Urine WBC (Auto) 3.0 /HPF (0.0-6.0) 10/22/21 Unknown Urine RBC (Auto) 2.0 /HPF (0.0-6.0) 10/22/21 Unknown U Epithel Cells (Auto) 2.0 /HPF (0-13.0) 10/22/21 Unknown Urine Mucus Few /HPF 10/22/21 Unknown Urine Sperm Few /HPF (MEDICAL TRANSCRIBER) 10/22/21 Unknown Urine Creatinine 108.1 mg/dL (0.1-20.0) H 10/22/21 Unknown Urine Sodium 21 mmol/L 10/22/21 Unknown Fraction Sodium Excret 0.3 10/22/21 Unknown Fluid Type Ascitic 10/22/21 Unknown Fluid Color Yajaira 10/22/21 Unknown Fluid Appearance Hazy 10/22/21 Unknown Fluid WBC 81.3 /mm3 10/22/21 Unknown Fluid RBC 2650 /mm3 10/22/21 Unknown Fluid Seg Neutrophils 24.0 % 10/22/21 Unknown Fluid Lymphocytes 27.0 % 10/22/21 Unknown Fluid Reactive Lymphs Not Reportable 10/22/21 Unknown Fluid Monocytes 49.0 % 10/22/21 Unknown Fluid Eosinophils Not Reportable 10/22/21 Unknown Fluid Basophils Not Reportable 10/22/21 Unknown Plasma/Serum Alcohol < 0.01 % (0-0.07) 10/20/21 02:50 Hepatitis A IgM Ab Non-reactive (NonReactive) 10/20/21 Unknown Hep Bs Antigen Non-reactive (Negative) 10/20/21 Unknown Hep B Core IgM Ab Non-reactive (NonReactive) 10/20/21 Unknown Hepatitis C Antibody Non-reactive (NonReactive) 10/20/21 Unknown Microbiology: Microbiology 10/22/21 Unknown Ascities Fluid Gram Stain - Final Tom/IV: Voiding Method Incontinent Active Medications - Current Medications Current Medications: Generic Name Dose Route Start Last Admin Trade Name Freq PRN Reason Stop Dose Admin Albumin Human 12.5 gm 10/22/21 14:00 10/23/21 13:04 Albumin Human 25% (12.5 Gm/50 Ml) Inj IV 10/24/21 06:01 12.5 gm Q8HR YUKO Administration Sodium Bicarbonate 150 meq/ 1,150 mls @ 75 mls/hr 10/22/21 11:00 10/23/21 04:07 Dextrose IV 75 mls/hr DIRECT YUKO Administration Lactulose 20 gm 10/20/21 18:00 10/23/21 12:41 Lactulose 20 Gm/30 Ml Oral Liqd PO 20 gm Q6HR YUKO Administration Levofloxacin 250 mg 10/23/21 11:00 10/23/21 12:41 Levofloxacin 250 Mg Tab PO 250 mg Q24HR YUKO Administration Protocol Lorazepam 2 mg 10/20/21 08:00 Lorazepam 2 Mg/Ml Vial IV Q1H PRN CIWA-Ar 8-15 Lorazepam 4 mg 10/20/21 08:00 Lorazepam 2 Mg/Ml Vial IV Q1H PRN CIWA-Ar 16-25 Lorazepam 4 mg 10/20/21 08:00 Lorazepam 2 Mg/Ml Vial IV Q15MIN PRN CIWA-Ar >25 Magnesium Hydroxide 30 ml 10/20/21 05:39 Magnesium Hydroxide (Mom) Oral Liqd Udc PO Q4H PRN Constipation Morphine Sulfate 2 mg 10/20/21 05:39 Morphine 2 Mg/1 Ml Inj IV Q4H PRN Pain, Moderate (4-6) Morphine Sulfate 4 mg 10/20/21 05:39 Morphine 4 Mg/1 Ml Inj IV Q4H PRN Pain , Severe (7-10) Ondansetron HCl 4 mg 10/20/21 05:39 Ondansetron 4 Mg/2 Ml Inj IV Q8H PRN Nausea And Vomiting Sodium Bicarbonate 650 mg 10/21/21 08:00 10/23/21 13:04 Sodium Bicarbonate 650 Mg Tab PO 650 mg TID YUKO Administration Sodium Chloride 10 ml 10/20/21 10:00 10/23/21 10:10 Sodium Chloride 0.9% 10 Ml Flush Syringe IV 10 ml BID YUKO Administration Sodium Chloride 10 ml 10/20/21 05:39 Sodium Chloride 0.9% 10 Ml Flush Syringe IV PRN PRN LINE FLUSH
[2021-10-24] MEDS: LACTULOSE 20 GM/30 ML ORAL LIQD PO SCH ×2 (06:00→14:17)
[2021-10-24] MEDS: ALBUMIN HUMAN 25% (12.5 GM/50 ML) INJ IV SCH (07:17)
[2021-10-24 08:08] VITALS: BP 131/60
[2021-10-24 08:24] LABS: INR 1.73 (0.87-1.13)
[2021-10-24 08:42] LABS: Albumin 2.4 g/dL (3.9-5)
--- NOTE | 2021-10-24 09:00 | Progress Note ---
Assessment and Plan # MÓNICA: unknown baseline, consider pre-renal vs HRS picture. Improving with IVFNo acute obstruction noted. - creatinine improving 3.0->2.7> 2.3 > 1.8->1.3 - check serologies, pending - urinalysis without blood or protein, less likely GN - note PTH very low, nutritional? - will hold IVF at this time given improvement - avoid nephrotoxins - renally dose medications - no immediate need for renal replacement therapy # Hyponatremia: Much improved with hydration with isotonic fluid # Hypokalemia: replete prn- stop HCO3 gtt which can lower K # Liver Cirrhosis, Alcoholic Hepatitis, Ascites, Thrombocytopenia, Hypoalbuminemia: GI following, patient is status post MRCP, paracentesis # Lekuocytosis # Metabolic Acidosis: Improving. Stop bicarbonate drip # BP/Volume: BP soft but stable, ascites noted. GI notes appreciated Subjective Date of service: 10/24/21 Principal diagnosis: cirrhosis, jaundice Interval history: Resting in bed, more alert than prior visits Objective - Exam Narrative Exam: General appearance: obese, other (no acute distress, jaundiced) EENT: ATNC Respiratory: Clear to Ascultation Heart: regular, S1S2 Gastrointestinal: Present: distended Integumentary: no rash Neurologic: alert, no focal deficits - Vital Signs Vital signs: Vital Signs - 12hr 10/23/21 10/24/21 10/24/21 22:00 05:55 08:02 Temperature 98.7 F 98.7 F Pulse Rate 80 81 Pulse Rate [ 82 From Monitor] Respiratory 18 Rate Blood Pressure 131/60 Blood Pressure 106/45 [Left] O2 Sat by Pulse 99 100 99 Oximetry - Lab 10/23/21 05:12 10/24/21 04:19 Most recent lab results Calcium 9.0 mg/dL (8.4-10.2) 10/24/21 04:19 Phosphorus 3.20 mg/dL (2.5-4.5) 10/23/21 05:12 Magnesium 2.50 mg/dL (1.7-2.3) H 10/23/21 05:12 Urine Creatinine 108.1 mg/dL (0.1-20.0) H 10/22/21 Unknown Urine Sodium 21 mmol/L 10/22/21 Unknown Medications & Allergies - Medications Allergies/Adverse Reactions: Allergies No Known Allergies Allergy (Verified 10/19/21 21:57) Home Medications: Home Medications Medication Instructions Recorded Confirmed Last Taken Type No Known Home Medications [No 10/20/21 10/20/21 Unknown History Reported Home Medications] Active Medications: Generic Name Dose Route Start Last Admin Trade Name Darvinq PRN Reason Stop Dose Admin Sodium Bicarbonate 150 meq/ 1,150 mls @ 75 mls/hr 10/22/21 11:00 10/23/21 21:40 Dextrose IV Infused DIRECT YUKO Infusion Lactulose 20 gm 10/20/21 18:00 10/24/21 06:00 Lactulose 20 Gm/30 Ml Oral Liqd PO 20 gm Q6HR YUKO Administration Levofloxacin 250 mg 10/23/21 11:00 10/23/21 12:41 Levofloxacin 250 Mg Tab PO 250 mg Q24HR YUKO Administration Protocol Lorazepam 2 mg 10/20/21 08:00 Lorazepam 2 Mg/Ml Vial IV Q1H PRN CIWA-Ar 8-15 Lorazepam 4 mg 10/20/21 08:00 Lorazepam 2 Mg/Ml Vial IV Q1H PRN CIWA-Ar 16-25 Lorazepam 4 mg 10/20/21 08:00 Lorazepam 2 Mg/Ml Vial IV Q15MIN PRN CIWA-Ar >25 Magnesium Hydroxide 30 ml 10/20/21 05:39 Magnesium Hydroxide (Mom) Oral Liqd Udc PO Q4H PRN Constipation Morphine Sulfate 2 mg 10/20/21 05:39 Morphine 2 Mg/1 Ml Inj IV Q4H PRN Pain, Moderate (4-6) Morphine Sulfate 4 mg 10/20/21 05:39 Morphine 4 Mg/1 Ml Inj IV Q4H PRN Pain , Severe (7-10) Ondansetron HCl 4 mg 10/20/21 05:39 Ondansetron 4 Mg/2 Ml Inj IV Q8H PRN Nausea And Vomiting Sodium Bicarbonate 650 mg 10/21/21 08:00 10/23/21 21:42 Sodium Bicarbonate 650 Mg Tab PO 650 mg TID YUKO Administration Sodium Chloride 10 ml 10/20/21 10:00 10/23/21 21:51 Sodium Chloride 0.9% 10 Ml Flush Syringe IV 10 ml BID YUKO Administration Sodium Chloride 10 ml 10/20/21 05:39 Sodium Chloride 0.9% 10 Ml Flush Syringe IV PRN PRN LINE FLUSH
--- NOTE | 2021-10-24 09:29 | Gastroenterology Progress Note ---
Assessment and Plan 1. Decompensated cirrhosis - s/p paracentesis, fluid not sent for analysis. no significant re-accumulation clinically. low sodium diet daily. diuretics not done given MÓNICA (improving) 2. Abnormal liver enzymes/jaundice - stable liver enzymes, suspect primarily due to alcoholic liver disease/cirrhosis. 3. Dilated CBD - retained stone on mrcp. high risk for ercp given decompensated cirrhosis and varices. clinically without abd pain, HD stable, wbc improving 4. Sepsis - complete 7 day course of empiric abx for possible biliary source. okay for discharge from gi stand point. should f/u in 1 week in gi clinic for labs. family counseled on close monitoring for sx's that would necessitate return to ER (fevers/chills, AMS, abd pain, etc) and expressed understanding. Subjective Principal diagnosis: cirrhosis, jaundice Interval history: no events overnight, and son at bedside. ate some breakfast. he wants to go home Objective - Constitutional Vitals: Temp Pulse Resp BP Pulse Ox 98.7 F 81 18 131/60 99 10/24/21 08:02 10/24/21 08:02 10/24/21 05:55 10/24/21 08:02 10/24/21 08:02 General appearance: no acute distress - EENT Eyes: scleral icterus - Respiratory Respiratory effort: normal Respiratory: bilateral: CTA - Cardiovascular Rhythm: regular Heart Sounds: Present: S1 & S2 - Gastrointestinal General gastrointestinal: Present: soft, non-distended - Labs CBC & Chem 7: 10/23/21 05:12 10/24/21 04:19 Labs: Laboratory Results - last 24 hr 10/24/21 10/24/21 04:19 04:19 PT 22.4 H INR 1.73 H Sodium 143 Potassium 3.2 L Chloride 110.0 H Carbon Dioxide 24 D Anion Gap 12 BUN 41 H Creatinine 1.3 Estimated GFR 53 BUN/Creatinine Ratio 32 Glucose 110 H Calcium 9.0 Total Bilirubin 15.80 H AST 335 H ALT 128 H Alkaline Phosphatase 549 H Total Protein 5.6 L Albumin 2.4 L Albumin/Globulin Ratio 0.8
[2021-10-24] MEDS ORDERED: POTASSIUM CHLORIDE ER 20 MEQ TAB PO SCH ×2 (10:00→13:00)
[2021-10-24] MEDS: SODIUM BICARBONATE 650 MG TAB PO SCH ×2 (10:21→14:16)
[2021-10-24] MEDS: levoFLOXacin 250 MG TAB PO SCH (10:21)
--- NOTE | 2021-10-24 12:42 | Discharge Summary ---
Providers - Providers Date of Admission: 10/20/21 05:40 Date of discharge: 10/24/21 Attending physician: FORREST FLOYD MD 10/20/21 05:45 Consult to Physician [CONS] Routine Comment: Consulting Provider: TONO ECKERT Physician Instructions: Reason For Exam: liver failure/ cirrhosis and jaundice 10/20/21 06:56 Consult to Physician [CONS] Routine Comment: Consulting Provider: JULIETH MARIE Physician Instructions: Reason For Exam: MÓNICA 10/20/21 11:09 Midline [Consult to PICC Line RN] [CONS] Routine Reason For Exam: unable to access Type Line:: Midline Primary care physician: TAYLOR RYAN Hospitalization Reason for admission: Hepatic encephalopathy, MÓNICA, hyperkalemia, hyponatremia Condition: Stable Pertinent studies: Reviewed. Procedures: Ultrasound guided paracentesis Hospital course: Patient is a 76-year-old male past medical history of alcohol dependence who originates from [place] and has been visiting with his family in [facility] approximately 5 days prior to presentation in the ED. It was described to the patient was going to the restroom when he suddenly collapsed with complaints of not feeling well over the previous days. The patient endorsed having struck his head but not having loss of consciousness. Most of the information regarding the patient was obtained from family members as the patient was encephalopathic at the time. In the ED, the patient was found to be hypotensive with a blood pressure of 89/47. Patient also had labs that were remarkable for sodium 129, potassium 5.3, bicarb 12, creatinine 3.0, platelet 82, hemoglobin 11.2, AST 203, ALT 120, alkaline phosphatase 603. Patient underwent CT abdomen and pelvis and abdominal ultrasound there ruled out biliary obstruction. Gastroenterology was consulted for management of presumed alcoholic cirrhosis. Nephrology was also consulted for management of renal failure. Patient underwent paracentesis (10/22/2021) with removal of 3.6 L of fluid. Patient was started on lactulose and Levaquin 250 mg daily (7-day coursecompleted on 10/30/2021) given the patient's original leukocytosis that is since resolved. Patient's MÓNICA has also resolved. Patient will follow-up with gastroenterology in 1 week for labs. Patient and his family been counseled at length about the importance of medication compliance, they expressed understanding. Have also been counseled on close monitoring for symptoms that would necessitate return to the urgency department such as fever/chills, altered mentation, abdominal pain, etc.; family expresses understanding. The patient is medically clear for discharge. Disposition: 01 HOME / SELF CARE / HOMELESS Final Discharge Diagnosis (Prints w/discharge instructions): Hepatic encephalopathy, newly diagnosed decompensated alcoholic cirrhosis, hyponatremia, hepatic failure, elevated transaminases, MÓNICA secondary to obstruction, hyperkalemia, hypokalemia, ground-level fall Time spent for discharge: 45 min Core Measure Documentation - Palliative Care Palliative Care/ Comfort Measures: Not Applicable - Core Measures Any of the following diagnoses?: none Exam - Constitutional Vitals: Temp Pulse Resp BP Pulse Ox 98.7 F 81 18 131/60 99 10/24/21 08:02 10/24/21 08:02 10/24/21 05:55 10/24/21 08:02 10/24/21 08:02 General appearance: Present: no acute distress, other (Jaundiced) - EENT Eyes: Present: PERRL, EOM intact ENT: hearing intact, clear oral mucosa, dentition normal - Neck Neck: Present: supple, normal ROM - Respiratory Respiratory effort: normal Respiratory: bilateral: CTA - Cardiovascular Rhythm: regular Heart Sounds: Present: S1 & S2 - Extremities Extremities: no ischemia, pulses intact, pulses symmetrical, normal temperature, normal color Extremity abnormal: edema (Trace edema of bilateral lower extremities) Peripheral Pulses: within normal limits - Abdominal General gastrointestinal: Present: soft, non-tender, distended (Mild distention without fluid wave), normal bowel sounds Male genitourinary: Present: deferred - Rectal Rectal Exam: deferred - Integumentary Integumentary: Present: clear, warm, dry - Musculoskeletal Musculoskeletal: generalized weakness - Psychiatric Psychiatric: appropriate mood/affect, cooperative - Neurologic Neurologic: CNII-XII intact - Allied Health Allied health notes reviewed: nursing Plan Activity: advance as tolerated Diet: regular Special Instructions: restrict fluid intake to (2 L/day) Additional Instructions: Patient is a 76-year-old male past medical history of alcohol dependence who originates from [place] and has been visiting with his family in [facility] approximately 5 days prior to presentation in the ED. It was described to the patient was going to the restroom when he suddenly collapsed with complaints of not feeling well over the previous days. The patient endorsed having struck his head but not having loss of consciousness. Most of the information regarding the patient was obtained from family members as the patient was encephalopathic at the time. In the ED, the patient was found to be hypotensive with a blood pressure of 89/47. Patient also had labs that were remarkable for sodium 129, potassium 5.3, bicarb 12, creatinine 3.0, platelet 82, hemoglobin 11.2, AST 203, ALT 120, alkaline phosphatase 603. Patient underwent CT abdomen and pelvis and abdominal ultrasound there ruled out biliary obstruction. Gastroenterology was consulted for management of presumed alcoholic cirrhosis. Nephrology was also consulted for management of renal failure. Patient underwent paracentesis (10/22/2021) with removal of 3.6 L of fluid. Patient was started on lactulose and Levaquin 250 mg daily (7-day coursecompleted on 10/30/2021) given the patient's original leukocytosis that is since resolved. Patient's MÓNICA has also resolved. Patient will follow-up with gastroenterology in 1 week for labs. Patient and his family been counseled at length about the importance of medication compliance, they expressed understanding. Have also been counseled on close monitoring for symptoms that would necessitate return to the urgency department such as fever/chills, altered mentation, abdominal pain, etc.; family expresses understanding. The patient is medically clear for discharge. Care Plan Goals: Patient is medically clear for discharge. Assessment: Patient is a 76-year-old male past medical history of alcohol dependence who originates from [place] and has been visiting with his family in [facility] approximately 5 days prior to presentation in the ED. It was described to the patient was going to the restroom when he suddenly collapsed with complaints of not feeling well over the previous days. The patient endorsed having struck his head but not having loss of consciousness. Most of the information regarding the patient was obtained from family members as the patient was encephalopathic at the time. In the ED, the patient was found to be hypotensive with a blood pressure of 89/47. Patient also had labs that were remarkable for sodium 129, potassium 5.3, bicarb 12, creatinine 3.0, platelet 82, hemoglobin 11.2, AST 203, ALT 120, alkaline phosphatase 603. Patient underwent CT abdomen and pelvis and abdominal ultrasound there ruled out biliary obstruction. Gastroenterology was consulted for management of presumed alcoholic cirrhosis. Nephrology was also consulted for management of renal failure. Patient underwent paracentesis (10/22/2021) with removal of 3.6 L of fluid. Patient was started on lactulose and Levaquin 250 mg daily (7-day coursecompleted on 10/30/2021) given the patient's original leukocytosis that is since resolved. Patient's MÓNICA has also resolved. Patient will follow-up with gastroenterology in 1 week for labs. Patient and his family been counseled at length about the importance of medication compliance, they expressed understanding. Have also been counseled on close monitoring for symptoms that would necessitate return to the urgency department such as fever/chills, altered mentation, abdominal pain, etc.; family expresses understanding. The patient is medically clear for discharge. Follow up with: TAYLOR RYAN MD [Primary Care Provider] - 7 Days ZAYDA SAVAGE MD [Staff Physician] - 7 Days Prescriptions: Lactulose [Cephulac] 20 gm PO Q6HR #1 bottle Potassium Chloride [K-Dur] 20 meq PO QDAY #30 tablet levoFLOXacin [Levaquin TAB] 750 mg PO Q48H #2 tablet Sodium Bicarbonate 650 mg PO TID #90 tablet
[2021-10-25] MEDS ORDERED: levoFLOXacin 750 MG TAB PO SCH (12:00)
== END 2021-10-24 14:30 | disposition home or self-care (01) | DRG 442 ==
LOC: ED 21:42 → 4A 10-20 05:40
PROVIDERS: ADMIT Internal Medicine Geriatric Medicine; ATTEND Student in an Organized Health Care Education/Training Program
PROC: 0W9G3ZZ Drainage of Peritoneal Cavity, Percutaneous Approach (ICD-10-PCS; principal; 2021-10-22)
DX: K72.90 Hepatic failure, unspecified without coma (principal); N17.9 Acute kidney failure, unspecified; E87.1 Hypo-osmolality and hyponatremia; K70.11 Alcoholic hepatitis with ascites; E87.5 Hyperkalemia; K74.60 Unspecified cirrhosis of liver; F10.10 Alcohol abuse, uncomplicated; D69.6 Thrombocytopenia, unspecified
CPT/HCPCS: 36415; 49083; 70450; 74176; 74181; 76705; 76770; 80048; 80053; 80074; 80320; 81001; 82040; 82140; 82150; 82570; 82947; 83735; 83970; 84100; 84160; 84300; 85007; 85025; 85610; 85730; 86021; 86038; 86160; 87205; 88112; 89051; G0378; J3490; G0480; J0610; J0696; J2060; J7030; J7070; P9047

== ENCOUNTER 2021-10-26 23:29 | Emergency (ER) | payer SELFPAY ==
[2021-10-27] MEDS ORDERED: NORepinephrine/NS 8 MG-250 ML 8 MG/250 ML INFUS..BTL IV ONE (00:52)
[2021-10-27] MEDS ORDERED: SODIUM CHLORIDE 0.9% 1000 ML 1,000 ML IV ONE (01:34)
--- NOTE | 2021-10-27 01:41 | Emergency Department Report ---
- General Chief complaint: Weakness Stated complaint: WEAKNESS Time Seen by Provider: 10/27/21 00:10 Source: family Mode of arrival: Wheelchair Limitations: Language Barrier - History of Present Illness Initial comments: 76 yo M brought in by the family member with worsening generalized muscle weakness for the last 10 days. Pt was seen in the ED his last visit where he was diagnosed with alcoholic cirrhosis with critically high ammonia level. He was admitted at that time and discharged home on 10/24/21 with warning to return if worsen. Family member reports that patient is so weak and could not even put weight on his legs. His generalized jaundice is worsening as well. Pt just got to the [facility] for treatment as his has been sick for the last 1 year. No other modifying or associated factors reported. - Related Data Previous Rx's Medication Instructions Recorded Last Taken Type Lactulose [Cephulac] 20 gm PO Q6HR #1 bottle 10/24/21 Unknown Rx Potassium Chloride [K-Dur] 20 meq PO QDAY #30 tablet 10/24/21 Unknown Rx Sodium Bicarbonate 650 mg PO TID #90 tablet 10/24/21 Unknown Rx levoFLOXacin [Levaquin TAB] 750 mg PO Q48H #2 tablet 10/24/21 Unknown Rx Allergies Allergy/AdvReac Type Severity Reaction Status Date / Time No Known Allergies Allergy Verified 10/19/21 21:57 ED Review of Systems ROS: Stated complaint: WEAKNESS Other details as noted in HPI Comment: All other systems reviewed and negative Constitutional: weakness Eyes: other (jaundice ) Respiratory: shortness of breath, SOB at rest Gastrointestinal: abdominal pain, nausea. denies: vomiting, hematemesis Skin: other (jaundice ) Neurological: weakness ED Past Medical Hx - Past Medical History Previous Medical History?: Yes Hx Deep Vein Thrombosis: (UNKNOWN) Hx Liver Disease: Yes (alcoholic liver cirrhosis) Hx HIV: No - Surgical History Past Surgical History?: No Hx Pacemaker: No Hx Internal Defibrillator: No - Social History Smoking Status: Never Smoker Substance Use Type: None - Medications Home Medications: Home Medications Medication Instructions Recorded Confirmed Last Taken Type Lactulose [Cephulac] 20 gm PO Q6HR #1 bottle 10/24/21 Unknown Rx Potassium Chloride [K-Dur] 20 meq PO QDAY #30 tablet 10/24/21 Unknown Rx Sodium Bicarbonate 650 mg PO TID #90 tablet 10/24/21 Unknown Rx levoFLOXacin [Levaquin TAB] 750 mg PO Q48H #2 tablet 10/24/21 Unknown Rx ED Physical Exam - General Limitations: Language Barrier General appearance: lethargic - Head Head exam: Present: atraumatic - Eye Eye exam: Present: other (jaundice ) - ENT ENT exam: Present: mucous membranes dry - Neck Neck exam: Present: normal inspection - Respiratory Respiratory exam: Present: normal lung sounds bilaterally. Absent: respiratory distress, accessory muscle use - Cardiovascular Cardiovascular Exam: Present: regular rate, normal rhythm, normal heart sounds, other (hypotension ) - GI/Abdominal GI/Abdominal exam: Present: soft, distended, normal bowel sounds - Extremities Exam Extremities exam: Present: normal capillary refill. Absent: pedal edema - Neurological Exam Neurological exam: Present: altered - Skin Skin exam: Present: other (jaundice ) ED Course Vital Signs 10/26/21 10/26/21 10/27/21 23:48 23:54 00:13 Pulse Rate 81 83 Respiratory 18 16 Rate Blood Pressure Blood Pressure 59/26 [Right] O2 Sat by Pulse 97 99 Oximetry 10/27/21 10/27/21 10/27/21 00:15 00:31 00:45 Pulse Rate 83 61 35 L Respiratory 22 21 8 L Rate Blood Pressure 77/39 Blood Pressure [Right] O2 Sat by Pulse 96 94 61 L Oximetry 10/27/21 10/27/21 10/27/21 01:00 01:15 01:31 Pulse Rate 78 90 95 H Respiratory 17 12 26 H Rate Blood Pressure 76/57 150/134 Blood Pressure [Right] O2 Sat by Pulse Oximetry 10/27/21 10/27/21 10/27/21 01:45 02:01 02:05 Pulse Rate 91 H 90 96 H Respiratory 26 H 26 H Rate Blood Pressure 70/34 Blood Pressure [Right] O2 Sat by Pulse 100 100 100 Oximetry 10/27/21 10/27/21 10/27/21 02:15 02:31 02:45 Pulse Rate 87 81 78 Respiratory 26 H 26 H 26 H Rate Blood Pressure Blood Pressure [Right] O2 Sat by Pulse 100 100 100 Oximetry 10/27/21 10/27/21 03:01 03:15 Pulse Rate 71 67 Respiratory 26 H 26 H Rate Blood Pressure Blood Pressure [Right] O2 Sat by Pulse 100 100 Oximetry - Reevaluation(s) Reevaluation #1: 10/27/21 04:20 At around 3:51 AM while waiting for other labs to be resulted -- I got a call to this patient room that he became pulseless while on the ventilator and on nor- epinephrine for his hypotension. Effective CPR started immediately and was given epi 1 mg IV x 1-- at this same time i use this opportunity to talk to the patient's son and about the futility of any extended medical treatment for this patient. They called the other family member in [place] and they all agreed to terminate the Code at 03:55 AM. Please seen the code sheath for details on medication used. - Consultations Consultation #1: 10/27/21 04:28 Dr Do notified and updated since this patient was discussed briefly with him while considering to admit this patient right after the initial code. - Intubation Time Out Performed: Yes Sedative: Etomidate Mg Given: 20 Paralytic: Rocuronium Mg Given: 60 Laryngoscope: [place] Size: 4 ET Tube Size: 7.5 Tube Secured Depth (cm): 22 Tube Secured Location: lips Tube Placement Confirmation: visualized tube passing t, equal breath sounds bilat, confirmation by capnometr Patient Tolerated Procedure: well Intubation Complications: none Additional Comments: initial tube placement was into the stomach with gastric content in the tube that was immediately discarded and changed to a new one. Patient reintubated immediately and was successful. ED Medical Decision Making - Lab Data Result diagrams: 10/27/21 01:41 10/27/21 01:41 - Medical Decision Making brought in by family member Son with grandson and spouse with worsening generalized muscle weakness with his jaundice as well-- this is likely due to progression of his alcoholic liver failure-- patient had paracentesis his last admission about 3 days ago so peritonitis could not be completely ruled out-- so will go ahead and check routine labs including CBC,CMP, UA -- Shortly while still in the room examining patient he started with agonal br eathing and lost his pulse-- by that time the family was deciding on what to do and after consulting with another Son out of State I was informed to make patient full code and go ahead with CPR and do all it takes to keep the patient alive before the family member out of State get here. CPR started immediately and was given epi x 1 with ROSC after the initial 2 minutes rhythm check. Pt was prepared for intubation and was intubated. Please see procedure note for details. Lab reviewed and noted with elevated troponin likely as a result of insult to the cardiac muscle from cardiac arrest and the CPR given -- It is also noted with critically low H&H 4.6/15.3 this could be as a result of chronic disease related to liver cirrhosis-- will advocate for transition of pRBC. Also noted is leukocytosis likely reactive but will continue to look for source of infection and treatment. Critical Care Time: Yes Critical care time in (mins) excluding proc time.: 75 Critical care attestation.: If time is entered above; I have spent that time in minutes in the direct care of this critically ill patient, excluding procedure time. Pt brought in lethargic with generalized muscle weakness with recent diagnosis of alcoholic liver cirrhosis who started with agonal breathing to cardiopulmonary arrest and coded with successful ROSC and intubated and due to high probability of clinically significant, life threatening deterioration, this patient required my highest level of preparedness to intervene emergently and I personally spent this critical care time directly and personally managing this patient. This critical care time included obtaining a history; examining this patient; pulse oximetry ; ordering and review of studies ; arranging urgent treatment with development of a management plan ; evaluation of patient's r esponse to treatment ; frequent reassessment ; and, discussion with other providers. This critical care time was performed to assess and manage the high probability of imminent, life-threatening deterioration that could result in multiple organ damage if not done in a timely fashion. ED Disposition Clinical Impression: Generalized muscle weakness, Jaundice due to hepatitis, Cardiac arrest, Cardiopulmonary arrest Liver cirrhosis, alcoholic Qualifiers: Ascites presence: with ascites Qualified Code(s): K70.31 - Alcoholic cirrhosis of liver with ascites Disposition: 20 Is pt being admited?: No Does the pt Need Aspirin: No Condition: Stable Referrals: TAYLOR RYAN MD [Primary Care Provider] - 3-5 Days
[2021-10-27 02:10] VITALS: BP 70/34
[2021-10-27 02:15] LABS: Mean Corpuscular HGB Conc 30 % (32-34); Red Blood Count 1.32 M/mm3 (3.65-5.03)
[2021-10-27 02:27] LABS: Albumin 1.5 g/dL (3.9-5); Calcium 8.9 mg/dL (8.4-10.2)
[2021-10-27 02:29] LABS: Hematocrit 15.3 % (35.5-45.6); Hemoglobin 4.6 gm/dl (11.8-15.2); INR 4.07 (0.87-1.13); Mean Corpuscular Volume 116 fl (84-94); Platelet Count 53 K/mm3 (140-440); Red Cell Distribution Width 20.8 % (13.2-15.2)
[2021-10-27 03:15] LABS: ABG Base Excess -19.3 mmol/L (-2.0-3.0); ABG HCO3 9.1 mmol/L (20.0-26.0); ABG Methemoglobin 0.4 % (0.0-1.5); ABG Oxygen Saturation 97.9 % (95.0-99.0); ABG PCO2 33.3 mm Hg; ABG PO2 147.4 mm Hg (80.0-90.0)
[2021-10-27 03:37] LABS: ABG PH 7.053 pH Units (7.350-7.450)
[2021-10-27 04:50] LABS: Chol/HDL Ratio 6.14 %
[2021-10-27 05:12] LABS: Anisocytosis 1+; Band Neutrophils # (Manual) 5.5 K/mm3; Basophils % (Manual) 0 % (0.0-1.8); Macrocytosis 1+; Myelocytes # (Manual) 0.8 K/mm3; Total Cells Counted 100
[2021-10-27 05:13] LABS: Hypochromasia 1+
[2021-10-27 05:14] LABS: Platelet Estimate Consistent w Auto
== END 2021-10-27 13:06 ==
LOC: ED 23:29
DX: R53.1 Weakness (principal); I46.9 Cardiac arrest, cause unspecified; K70.30 Alcoholic cirrhosis of liver without ascites; K76.9 Liver disease, unspecified
CPT/HCPCS: 31500; 36415; 80053; 80061; 82140; 82803; 83735; 84484; 85007; 85025; 85610; 87040; 87205; 96360; 99291; J2354; 94002